=== PATIENT | male | born 1995 | race Caucasian/White ===

== ENCOUNTER 2020-03-05 12:40 | Emergency (ER) | payer MEDICAID, SELFPAY ==
[2020-03-05 12:49] VITALS: BP 138/84; PULSE 105; PULSE 110; RESP 16; TEMP 36.6; O2SAT 99; BMI 24.3
--- NOTE | 2020-03-05 13:08 | ED_ITS ---
HPI - Abdominal Pain General Chief Complaint: ETOH/Substance Use Stated Complaint: drug use Time Seen by Provider: 03/05/20 12:44 Source: patient and EMS Mode of arrival: EMS Limitations: no limitations History of Present Illness HPI narrative: 24 yo male with past medical history of IVDA here with complaints of generalized abdominal cramping, vomiting, diarrhea intermittent for a long time. He tells me he is using IV heroin daily many bags and last use was just BLINTZE ROLLER. No additional substance use. He tells me he has had less heroin the last few days and he thinks this may be contributing to his symptoms. Has been on methadone before but not recently, also has tried suboxone before. Interested in starting both but not interested in detox. No SI/HI. Agitated and intermittently cooperative with EMS, staff. MD elicited complaint: abdominal pain Onset (ago): day(s) Pain Consistency: intermittent Location: diffuse Severity: mild Quality: cramping Radiation: none Migration to: no migration Exacerbating factors: nothing Relieving factors: nothing Associated symptoms: nausea, vomiting and diarrhea Related Data Allergies Allergy/AdvReac Type Severity Reaction Status Date / Time No Known Allergies Allergy Unverified 10/29/19 19:00 [No Known Allergies*] Review of Systems Review of Systems Yes all other systems are reviewed and are negative Constitutional: Reports no additional constitutional complaints, Denies body ache(s), Denies chills, Denies fever(s), Denies headache(s) and Denies weakness Eyes: Reports no additional eye complaints and Denies change in vision Reports system reviewed and no additional complaints, except as documented, Denies dizziness, Denies headache(s), Denies nasal congestion, Denies nasal discharge and Denies neck pain Cardiovascular: Reports no additional cardiovascular complaints, Denies chest pain, Denies leg edema and Denies dyspnea Respiratory: Reports no additional respiratory complaints, Denies cough and Denies dyspnea Gastrointestinal: Reports no additional gastrointestinal complaints, Reports abdominal pain, Reports diarrhea, Reports nausea and Reports vomiting Genitourinary: Denies urinary incontinence Musculoskeletal: Reports no additional musculoskeletal complaints, Denies back pain, Denies arthralgias, Denies joint swelling, Denies neck pain, Denies numbness and Denies tingling Skin/Breast: Reports system reviewed and no additional complaints, except as docu and Denies rash Reports system reviewed and no additional complaints, except as documented, Denies Abnormal speech present, Denies dizziness, Denies headache(s), Denies numbness, Denies tingling and Denies weakness Psychiatric: Denies suicidal ideation Physical Exam Vital Signs: Vital Signs: Last Vital Signs Temp 97.9 F 03/05/20 12:49 Pulse 105 H 03/05/20 12:49 Resp 16 03/05/20 12:49 BP 138/84 03/05/20 12:49 Pulse Ox 99 03/05/20 12:49 Body Mass Index 24.3 Const: General: cooperative, healthy appearing, comfortable and no acute distress Orientation/consciousness: patient oriented x3 Limitations: no limitations HENMT: Head: Yes normal to inspection Ears: hearing grossly normal bilaterally General nose exam: Normal external nose present Face and sinus: Yes normal facial exam Mouth: Normal oral and palatal mucosa present Throat: Yes posterior oropharynx normal Eyes: General: appearance normal, both eyes and all related structures Pupils: Equal, round and reactive pupils present Neck: Neck: Yes normal visual inspection Chest: Chest palpation & inspection: normal inspection of the chest Resp: Effort & Inspection: normal respiratory effort Auscultation: clear to auscultation bilaterally Cardio: Rate: regular rate Rhythm: regular rhythm Peripheral pulses: Peripheral pulses 2+ throughout GI: Other: Mild diffuse tenderness Inspection: Yes normal to inspection Palpation (GI): Soft to palpation Auscultation: normal bowel sounds Back/Spine/Pelvis: Thoracic/Lumbar Spine: thoracic and lumbar spine normal to inspection Skin: General skin exam: no rashes or lesions noted Neuro: Other: +agitated General: patient oriented x3, no focal motor deficits and normal sensation to monofilament Cranial nerves: Yes Equal, round and reactive pupils present Cognition (Neuro): normal cognition Speech: No Abnormal speech present Gait exam (Neuro): Normal gait present Motor exam (neuro): 5/5 motor strength present throughout Sensory Exam: Normal double simultaneous stimulation for sensation Extrem: General: Yes normal to inspection Course Course Course Narrative: 24 yo male here with generalized abdominal cramping, vomiting, diarrhea which is acute on chronic. Tells me he has been using less heroin and thinks these symptoms are related to withdrawal symptoms. On arrival patient is A&Ox4, ambulatory, tolerating water. He has mild diffuse tenderness with no focal tenderness, rebound or guarding. He is very agitated and intermittently agreeable with staff. I saw the patient and offerred to check labs, UA, ORDOÑEZ. Offered medications for withdrawal symptoms which patient accepted. He is interested in both suboxone and methadone however used heroin just BLINTZE ROLLER and it is to soon for him to start these medications. Offered detox but declined. 1320-Pt became increasingly agitated and verbally aggressive with staff. Swearing and yelling obscenities towards staff. Explained to patient that we are happy to see him for his complaint but his behavior towards staff will not be tolerated. He is up and ambulatory, alert and oriented. Unfortunately he continued to escalate and was escorted out by security. Discharge Plan Discharge Clinical Impression: Abdominal pain, Substance use Patient Disposition: Elopement Interventions: ED Discharge Assessment Last Done: 03/05/20 13:32 Discharge Date/Time: 03/05/20 13:33 [facility] Past Medical History Attestation statement: The following information was validated with the patient. Source: old records reviewed and nursing notes reviewed Medical History ADHD Anxiety Asthma GERD (gastroesophageal reflux disease) Insomnia Substance abuse Social History Social History Advance Directives: No Advance Directives Information Provided: No
--- NOTE | 2020-03-05 13:21 | PC.NURSE ---
pt verbally threatening and screaming he is non directable and escalating despite different approaches by various staff. He then stood in an aggressive stance against security, fist clenched while screaming/threatening security and nursing staff. he was then escorted to the ambulance and [employer] was contacted.
--- NOTE | 2020-03-05 13:29 | PC.NURSE ---
Patient seen by Rosie QUALITY ASSURANCE COORDINATOR for evaluation. Plan for labs and medication as ordered. Patient refusing care and verbally escalating at this time. See prior not for additional information.
== END 2020-03-05 13:33 | disposition left against medical advice (07) ==
LOC: HO.ED 13:25
PROVIDERS: Emergency Provider Internal Medicine
DX: R10.9 Unspecified abdominal pain (principal); F11.10 Opioid abuse, uncomplicated; Z71.51 Drug abuse counseling and surveillance of drug abuser
CPT/HCPCS: 99283

== ENCOUNTER 2020-03-13 02:44 | Emergency (ER) | payer MEDICAID, SELFPAY ==
[2020-03-13 02:52] VITALS: BP 133/66; PULSE 130; RESP 18; TEMP 36; O2SAT 94; BMI 24.2
--- NOTE | 2020-03-13 03:33 | US_ITS ---
EXAMINATION: US VENOUS WITH DOPPLER UPPER EXTREMITY, LEFT CLINICAL INFORMATION: Erythema, swelling COMPARISON: None TECHNIQUE: Ultrasound of the upper extremity is performed using compression sonography and color and pulse Doppler flow with assessment of augmentation of flow. There is also imaging and Doppler assessment of the jugular and subclavian veins. Spectral analysis with color-flow imaging is performed. FINDINGS: Per technologist report, performance of the exam was limited evaluation due to patient movement. Respiratory variation, normal compression, and augmented flow are noted throughout the upper extremity including the axillary, brachial, cubital, and radial and ulnar veins. There is normal flow in the internal jugular and subclavian veins. There is no visible deep or superficial thrombophlebitis. If the patient's symptoms progress, a followup ultrasound in 5 -7 days might be of value to exclude proximal propagation from a nonvisualized distal arm vein. Mildly prominent lymph nodes noted in the axilla. US/US venous duplex UE LT IMPRESSION: 1. No DVT demonstrated in the left upper extremity. 2. Mildly prominent axillary lymph nodes which are nonspecific and may be reactive.
[2020-03-13 03:55] VITALS: RESP 18
--- NOTE | 2020-03-13 04:18 | PC.NURSE ---
per patient when i went to [facility], they gave me an us in 2 minutes and dilaudid. I don't know what that is, I just want some pain relief. Pt educated to process of registration scheduling specialist US team. patient educated to purpose of labs and US. Per patient Is this a low standard hospital? pt educated that [facility] that corresponds with the literature of current best treatment. you're being fucking facetious . No further questions at this time.
[2020-03-13 04:20] LABS: Basophils Absolute Auto 0.1 X10*3/uL (0.0-0.2); Basophils Percent Auto 0.2 % (0-2); Hematocrit 36.4 % (42-52); Hemoglobin 12.1 g/dl (14.0-18.0); Imm Gran Abs Auto 0.13 X10*3/uL (0.00-0.03); Imm Gran Pct Auto 0.5 % (0.0-0.4); Lymphocytes Absolute Auto 2.7 X10*3/uL (1.2-4.9); Lymphocytes Percent Auto 9.6 % (20-40); MANUAL DIFF FLAG SCAN; Mean Corpuscular HGB Conc 33.2 g/dl (31.0-36.0); Mean Corpuscular Hemoglobin 27.6 pg (27.0-33.0); Mean Corpuscular Volume 83.1 fL (80-98); Monocytes Absolute Auto 1.9 X10*3/uL (0.1-1.2); Monocytes Percent Auto 6.6 % (2-11); Neutrophils Absolute Auto 23.4 X10*3/uL (2.0-8.3); Neutrophils Percent Auto 83.1 % (45-73); Platelet Count 422 X10*3/uL (160-400); Red Blood Count 4.38 X10*6/uL (4.60-5.80); Red Cell Distribution Width 12.8 % (11.0-16.0); SCAN SMEAR FLAG 1; White Blood Count 28.2 X10*3/uL (4.8-10.8)
--- NOTE | 2020-03-13 04:39 | PC.NURSE ---
Pt to US at this time.
[2020-03-13 04:48] LABS: SLIDE REVIEW VERIFIED
[2020-03-13 04:49] LABS: Lactic Acid 0.5 mmol/L (0.5-2.0)
[2020-03-13 04:49] LABS: Ethanol < 10 mg/dL
[2020-03-13 04:53] LABS: Alanine Aminotransferase 22 U/L (0-40); Albumin Level 4.2 g/dL (3.5-5.0); Alkaline Phosphatase 84 U/L (39-117); Anion Gap 17 (12-20); Aspartate Amino Transferase 35 U/L (5-37); Bilirubin Total 0.8 mg/dL (0.0-1.0); Blood Urea Nitrogen 16 mg/dL (9-16); Carbon Dioxide 23 mmol/L (22-29); Chloride 97 mmol/L (96-108); Creatinine Clr Calc Pharmacy 78.3; Estimated Glomerular Filt Rate > 60; Glucose Random 98 mg/dL (60-115); Potassium 4.1 mmol/L (3.3-5.1); Sodium 133 mmol/L (135-145); Total Protein 7.3 g/dL (6.5-8.0)
--- NOTE | 2020-03-13 05:06 | PC.NURSE ---
THIS PHONE SCREENER REQUESTED A URINE SAMPLE FROM THE PATIENT. WHY THE FUCK DO I NEED TO DO THAT, YOU PROFILING ME? PT EDUCATED THAT DUE TO ELEVATED WHITE BLOOD CELL COUNT, ALL MODES OF INFECTION NEED TO BE RULED OUT. FUCK YOU, YOU FAKE BITCH. PT BECOMING INCREASINGLY IRRITATE AND VERBALLY ABUSIVE TO STAFF. WAXING MACHINE OPERATOR AWARE. MD AWARE. PATIENT I FUCKING HATE YOU'RE FAKE ATTITUDE. I WANT ANOTHER NURSE. PT EDUCATED DUE TO ACUITY AND STAFFING, THE WAXING MACHINE OPERATOR WILL BE A WHILE. BEHAVIOR REMAINS AGGRESSIVE AND ERRATIC. PT OBSERVER NOTED PATIENT BRINGING GENERAL MAINTENANCE ENGINEER AND CIGARET INTO BATHROOM. PATIENT AMBUALTED TO BATHROOM WITH STEADY GAIT. PT REQUESTED THAT THIS RN ENTER BATHROOM TO GIVE URINE CUP. PATIENT EDUCATED THAT HE WOULD NEED TO LEAVE BATHROOM. SECURITY TO BEDSIDE REGARDING VISUALIZATION OF CIGARET INTO BATHROOM. PT DENIES. PT SELF INDUCING VOMITING
--- NOTE | 2020-03-13 05:18 | PC.NURSE ---
pt requesting bandaid after biting glass out of [his] fingers. pt instructed that bandaids will be provided to him once he leaves the bathroom.
--- NOTE | 2020-03-13 05:21 | PC.NURSE ---
pt stated i dont' want to be here any longer. you guys are wasting my time Md to bedside. Provided educated patient the risks of leaving without treatment for infective process, including admission and what could happen if he refuses treatment. Md offered to answer any questions. Pt refused. Pt asked to wait by bedside for ama paperwork. patient refused. Patient refused repeat vs. Patient ambulated with steady gait towards exit.
[2020-03-13 05:28] LABS: Glucose Urine UA NEG (NEG); Leukocyte Esterase Urine NEG (NEG); Nitrite Urine NEG (NEG); Specific Gravity - Urine <= 1.005 (1.005-1.025); Urine Blood 1+ (NEG); Urine Ketones NEG (NEG); Urine Protein NEG (NEG-TRACE)
[2020-03-13 05:30] LABS: Appearance Urine CLEAR; Color Urine STRAW
[2020-03-13 05:37] LABS: Amphetamine Screen Urine Not Detected (Not Detect); Barbiturates, Urine Not Detected (Not Detect); Cannabinoid Screen Urine Not Detected (Not Detect); Cocaine Screen Urine POSITIVE (Not Detect); Phencyclidine Screen Urine Not Detected (Not Detect)
[2020-03-13 05:40] LABS: Benzodiazepines Screen Urine Not Detected (Not Detect); Opiate Screen Urine POSITIVE (Not Detect)
[2020-03-13 06:13] LABS: RBC Urine 0-2 /HPF (0); Squamous Epithelial Cell Urine TRACE /LPF; WBC Urine 0-2 /HPF (0-4)
--- NOTE | 2020-03-13 08:23 | ED_ITS ---
HPI - General Adult General Chief complaint: General Medical Stated complaint: swollen left arm Time Seen by Provider: 03/13/20 03:33 Source: patient Mode of arrival: EMS History of Present Illness HPI narrative: This is a 24-year-old male is brought in by EMS when they were called by police department and stated that patient was acting erratically (they recalled for a noise complaint) and there were concerns for infection of the left upper extremity. Patient states that his arm has been like that for a few days and has been associated with chills but denies numbness and tingling distally to the area of inflammation. Related Data Allergies Allergy/AdvReac Type Severity Reaction Status Date / Time No Known Allergies Allergy Unverified 10/29/19 19:00 [No Known Allergies*] Review of Systems Review of Systems: Pertinent positives and negatives as stated in HPI 10 point review systems is otherwise negative. [facility] Past Medical History Source: nursing notes reviewed Medical History ADHD Anxiety Asthma GERD (gastroesophageal reflux disease) Insomnia Substance abuse Social History Social History Smoking Status: Current every day smoker Use of substances other than those prescribed or required for medical reasons: Yes Substance Use Type: Crack/Cocaine, Heroin and IV Drugs Substance Use Frequency: Daily Last Used Substance: Just Prior to Admission Advance Directives: No Physical Exam Vital Signs: Vital Signs: Last Vital Signs Temp 96.8 F 03/13/20 02:52 Pulse 130 H 03/13/20 02:52 Resp 18 03/13/20 03:55 BP 133/66 03/13/20 02:52 Pulse Ox 94 03/13/20 02:52 Body Mass Index 24.2 VITAL SIGNS: Reviewed. GENERAL: Well developed, well nourished, in no acute distress. OROPHARYNX: no oral lesions noted, posterior pharynx clear NECK: Supple, no adenopathy LUNGS: Normal breath sounds. SpO2<99> CARDIOVASCULAR: Regular rate and rhythm without noted murmurs ABDOMEN: Soft, non-tender, non-distended with bowel sounds. LEFT UPPER EXTREMITY: Significant erythema noted to medial aspect of left upper extremity without fluctuance and significant induration,+ warmth, neurovascular intact distally EXTREMITIES: Extensive needle tracks on bilateral upper extremities SKIN: Inspection of the skin reveals no rashes NEUROLOGIC: Alert and oriented x 4. Course Course Course Narrative: This is a 24-year-old male with history and clinical presentation consistent left upper extremity cellulitis likely secondary to infected injection site and will rule DVT. On review of all investigations patient has a significant leukocytosis and venous duplex was negative DVT. Discussed with patient the results and during this time of workup he was noted to be verbally aggressive with nursing staff and caps and that he was going to sign out AMA and go to [facility]. On discussion of the results with the patient he stated that he wanted to be evaluated at [facility]. It was explained to him that he would need to be admitted for IV antibiotics given the degree infection in his left arm. He stated he was not going to stay and walked out of the emergency department. Medical Decision Making Lab Data Result diagrams: 03/13/20 04:12 03/13/20 04:12 Labs: Lab Results 03/13/20 03/13/20 03/13/20 Range/Units 04:11 04:12 04:12 WBC 28.2 H (4.8-10.8) X10*3/uL RBC 4.38 L (4.60-5.80) X10*6/uL Hgb 12.1 L (14.0-18.0) g/dl Hct 36.4 L (42-52) % MCV 83.1 (80-98) fL MCH 27.6 (27.0-33.0) pg MCHC 33.2 (31.0-36.0) g/dl RDW 12.8 (11.0-16.0) % Plt Count 422 H (160-400) X10*3/uL MPV 9.0 L (9.4-12.4) fL Immature Gran % (Auto) 0.5 H (0.0-0.4) % Neut % (Auto) 83.1 H (45-73) % Lymph % (Auto) 9.6 L (20-40) % [place] % (Auto) 6.6 (2-11) % Eos % (Auto) 0.0 (0-4) % Baso % (Auto) 0.2 (0-2) % Lymph # (Auto) 2.7 (1.2-4.9) X10*3/uL [place] # (Auto) 1.9 H (0.1-1.2) X10*3/uL Eos # (Auto) 0.0 (0.0-0.4) X10*3/uL Baso # (Auto) 0.1 (0.0-0.2) X10*3/uL Abs Immat Gran (auto) 0.13 H (0.00-0.03) X10*3/uL Absolute Neuts (auto) 23.4 H (2.0-8.3) X10*3/uL Absolute Nucleated RBC 0.000 (0.0-0.012) X10*3/uL Nucleated RBC % (auto) 0.0 (0.0-0.2) /100WBC Smear Tech's Comments VERIFIED Sodium 133 L (135-145) mmol/L Potassium 4.1 (3.3-5.1) mmol/L Chloride 97 (96-108) mmol/L Carbon Dioxide 23 (22-29) mmol/L Anion Gap 17 (12-20) BUN 16 (9-16) mg/dL Creatinine 1.29 (0.5-1.4) mg/dL Estim Creat Clear Calc 78.3 Estimated GFR > 60 Random Glucose 98 (60-115) mg/dL Lactic Acid 0.5 (0.5-2.0) mmol/L Calcium 9.0 (8.4-10.2) mg/dL Total Bilirubin 0.8 (0.0-1.0) mg/dL AST 35 (5-37) U/L ALT 22 (0-40) U/L Alkaline Phosphatase 84 (39-117) U/L Total Protein 7.3 (6.5-8.0) g/dL Albumin 4.2 (3.5-5.0) g/dL Urine Color Urine Appearance Urine pH (5.0-8.0) Ur Specific [place] (1.005-1.025) Urine Protein (NEG-TRACE) MG/DL Urine Glucose (UA) (NEG) MG/DL Urine Ketones (NEG) MG/DL Urine Blood (NEG) Urine Nitrite (NEG) Ur Leukocyte Esterase (NEG) Urine RBC (0) /HPF Urine WBC (0-4) /HPF Ur Squamous Epith Cells /LPF Urine Bacteria /LPF Urine Opiates Screen (Not Detect) Ur Barbiturates Screen (Not Detect) Ur Phencyclidine Scrn (Not Detect) Ur Amphetamines Screen (Not Detect) U Benzodiazepines Scrn (Not Detect) Urine Cocaine Screen (Not Detect) U Marijuana (THC) Screen (Not Detect) Ethyl Alcohol mg/dL 03/13/20 03/13/20 03/13/20 Range/Units 04:12 05:19 05:19 WBC (4.8-10.8) X10*3/uL RBC (4.60-5.80) X10*6/uL Hgb (14.0-18.0) g/dl Hct (42-52) % MCV (80-98) fL MCH (27.0-33.0) pg MCHC (31.0-36.0) g/dl RDW (11.0-16.0) % Plt Count (160-400) X10*3/uL MPV (9.4-12.4) fL Immature Gran % (Auto) (0.0-0.4) % Neut % (Auto) (45-73) % Lymph % (Auto) (20-40) % [place] % (Auto) (2-11) % Eos % (Auto) (0-4) % Baso % (Auto) (0-2) % Lymph # (Auto) (1.2-4.9) X10*3/uL [place] # (Auto) (0.1-1.2) X10*3/uL Eos # (Auto) (0.0-0.4) X10*3/uL Baso # (Auto) (0.0-0.2) X10*3/uL Abs Immat Gran (auto) (0.00-0.03) X10*3/uL Absolute Neuts (auto) (2.0-8.3) X10*3/uL Absolute Nucleated RBC (0.0-0.012) X10*3/uL Nucleated RBC % (auto) (0.0-0.2) /100WBC Smear Tech's Comments Sodium (135-145) mmol/L Potassium (3.3-5.1) mmol/L Chloride (96-108) mmol/L Carbon Dioxide (22-29) mmol/L Anion Gap (12-20) BUN (9-16) mg/dL Creatinine (0.5-1.4) mg/dL Estim Creat Clear Calc Estimated GFR Random Glucose (60-115) mg/dL Lactic Acid (0.5-2.0) mmol/L Calcium (8.4-10.2) mg/dL Total Bilirubin (0.0-1.0) mg/dL AST (5-37) U/L ALT (0-40) U/L Alkaline Phosphatase (39-117) U/L Total Protein (6.5-8.0) g/dL Albumin (3.5-5.0) g/dL Urine Color STRAW Urine Appearance CLEAR Urine pH 6.0 (5.0-8.0) Ur Specific [place] <= 1.005 (1.005-1.025) Urine Protein NEG (NEG-TRACE) MG/DL Urine Glucose (UA) NEG (NEG) MG/DL Urine Ketones NEG (NEG) MG/DL Urine Blood 1+ H (NEG) Urine Nitrite NEG (NEG) Ur Leukocyte Esterase NEG (NEG) Urine RBC 0-2 (0) /HPF Urine WBC 0-2 (0-4) /HPF Ur Squamous Epith Cells TRACE /LPF Urine Bacteria NONE /LPF Urine Opiates Screen POSITIVE H (Not Detect) Ur Barbiturates Screen Not Detected (Not Detect) Ur Phencyclidine Scrn Not Detected (Not Detect) Ur Amphetamines Screen Not Detected (Not Detect) U Benzodiazepines Scrn Not Detected (Not Detect) Urine Cocaine Screen POSITIVE H (Not Detect) U Marijuana (THC) Screen Not Detected (Not Detect) Ethyl Alcohol < 10 mg/dL Discharge Plan Discharge Clinical Impression: Cellulitis of left upper arm Patient Disposition: Elopement Interventions: ED Discharge Assessment Last Done: 03/13/20 05:30 Discharge Date/Time: 03/13/20 05:32
== END 2020-03-13 05:32 | disposition left against medical advice (07) ==
PROVIDERS: Emergency Provider Student in an Organized Health Care Education/Training Program; PCP Internal Medicine
DX: L03.114 Cellulitis of left upper limb (principal); R60.0 Localized edema; F17.200 Nicotine dependence, unspecified, uncomplicated; F11.90 Opioid use, unspecified, uncomplicated; F14.90 Cocaine use, unspecified, uncomplicated; Z71.6 Tobacco abuse counseling
CPT/HCPCS: 36415; 80053; 80307; 80320; 81001; 83605; 85025; 87040; 93971; 99284

== ENCOUNTER 2020-03-14 22:46 | Inpatient (IN) | payer MEDICAID, SELFPAY ==
[2020-03-14 23:04] VITALS: BP 116/80; BP 134/75; PULSE 92; PULSE 94; RESP 15; TEMP 36.9; O2SAT 98; O2SAT 99; BMI 21.2
--- NOTE | 2020-03-14 23:13 | ECG_ITS ---
Test Reason : INFECTION Blood Pressure : / mmHG Vent. Rate : 083 BPM Atrial Rate : 083 BPM P-R Int : 136 ms QRS Dur : 092 ms QT Int : 410 ms P-R-T Axes : 046 066 051 degrees QTc Int : 481 ms Normal sinus rhythm Moderate voltage criteria for LVH, may be normal variant Prolonged QT Abnormal ECG No previous ECGs available Referred By: Clarice Vázquez Electronically Signed By:ASHLEY BHAT MD
--- NOTE | 2020-03-14 23:15 | ED_ITS ---
HPI - Extremity Problem General Chief complaint: Extremity Problem Stated complaint: arm pain Time Seen by Provider: 03/14/20 23:13 Source: patient Mode of arrival: EMS History of Present Illness HPI Narrative: This is a 24-year-old male history of IVDA who was initially evaluated last night and noted to have cellulitis and on that initial examination venous duplex was negative for DVT. Patient eloped and now is being brought in again by EMS for same symptoms left upper extremity redness, swelling, pain and stating that ?it is now leaking?. Patient states that his arm has been like that for a few days and has been associated with chills but denies numbness and tingling distally to the area of inflammation. Related Data Allergies Allergy/AdvReac Type Severity Reaction Status Date / Time No Known Allergies Allergy Unverified 10/29/19 19:00 [No Known Allergies*] Review of Systems Review of Systems: Pertinent positives and negatives as stated in HPI 10 point review systems is otherwise negative. PMFSH Past Medical History Source: nursing notes reviewed Medical History ADHD Anxiety Asthma GERD (gastroesophageal reflux disease) Insomnia Substance abuse Social History Social History Smoking Status: Never smoker Use of substances other than those prescribed or required for medical reasons: Yes Substance Use Type: Crack/Cocaine and Heroin Substance Use Frequency: Chronic Longstanding Last Used Substance: Hours (ago) Any prior treatment program specific to substance use: No Advance Directives: No Physical Exam Vital Signs: Vital Signs: Last Vital Signs Temp 98.4 F 03/15/20 00:00 Pulse 94 03/15/20 00:00 Resp 15 03/15/20 00:00 BP 134/75 03/15/20 00:00 Pulse Ox 98 03/15/20 00:00 Body Mass Index 21.2 VITAL SIGNS: Reviewed. GENERAL: Well developed, well nourished, in no acute distress. OROPHARYNX: no oral lesions noted, posterior pharynx clear NECK: Supple, no adenopathy LUNGS: Normal breath sounds. SpO2<98> CARDIOVASCULAR: Regular rate and rhythm without noted murmurs ABDOMEN: Soft, non-tender, non-distended with bowel sounds. LEFT UPPER EXTREMITY: Significant erythema, induration noted to left upper extremity with fluctuance and 2 sites of purulent drainage,+ warmth, neurovascular intact distally EXTREMITIES: Extensive needle tracks on bilateral upper extremities SKIN: Inspection of the skin reveals no rashes NEUROLOGIC: Alert and oriented x 4. Course Course Course Narrative: This is a 24-year-old male with history and clinical pres entation consistent with left upper extremity cellulitis and meeting criteria for sepsis. Lactic acid, blood cultures, antibiotics, and I and D performed. All investigations reviewed and no significant findings noted in comparison to lab work drawn within the past 12 hours. Additional note, patient did have a venous duplex which was negative for DVT. Discussed case with inpatient hospitalist team who is agreeable for admission. Procedures Abscess I/D Site: upper extremity Side (if applicable): left Sedation/analgesia: none Local Anesthetic: lidocaine 2% and with epi Amount of anesthesia used (mL): 8 Technique: incised with blade Amount of fluid expressed (mL): 200 Sent for culture/gram staining?: No Irrigation: Yes Packing used?: plain Complications: pain MDM - Extremity (Nontraumatic) Lab Data Result diagrams: 03/14/20 23:32 03/14/20 23:32 Labs: Lab Results 03/14/20 03/14/20 03/14/20 Range/Units 23:32 23:32 23:32 WBC 22.6 H (4.8-10.8) X10*3/uL RBC 4.53 L (4.60-5.80) X10*6/uL Hgb 12.4 L (14.0-18.0) g/dl Hct 37.9 L (42-52) % MCV 83.7 (80-98) fL MCH 27.4 (27.0-33.0) pg MCHC 32.7 (31.0-36.0) g/dl RDW 12.8 (11.0-16.0) % Plt Count 466 H (160-400) X10*3/uL MPV 10.0 (9.4-12.4) fL Immature Gran % (Auto) 0.4 (0.0-0.4) % Neut % (Auto) 81.3 H (45-73) % Lymph % (Auto) 11.9 L (20-40) % [place] % (Auto) 6.1 (2-11) % Eos % (Auto) 0.1 (0-4) % Baso % (Auto) 0.2 (0-2) % Lymph # (Auto) 2.7 (1.2-4.9) X10*3/uL [place] # (Auto) 1.4 H (0.1-1.2) X10*3/uL Eos # (Auto) 0.0 (0.0-0.4) X10*3/uL Baso # (Auto) 0.1 (0.0-0.2) X10*3/uL Abs Immat Gran (auto) 0.10 H (0.00-0.03) X10*3/uL Absolute Neuts (auto) 18.4 H (2.0-8.3) X10*3/uL Absolute Nucleated RBC 0.000 (0.0-0.012) X10*3/uL Nucleated RBC % (auto) 0.0 (0.0-0.2) /100WBC Sodium 132 L (135-145) mmol/L Potassium 4.8 (3.3-5.1) mmol/L Chloride 92 L (96-108) mmol/L Carbon Dioxide 23 (22-29) mmol/L Anion Gap 22 H (12-20) BUN 12 (9-16) mg/dL Creatinine 1.01 (0.5-1.4) mg/dL Estim Creat Clear Calc 117.8 Estimated GFR > 60 Random Glucose 101 (60-115) mg/dL Lactic Acid (0.5-2.0) mmol/L Calcium 9.5 (8.4-10.2) mg/dL Total Bilirubin 0.5 (0.0-1.0) mg/dL AST 46 H (5-37) U/L ALT 28 (0-40) U/L Alkaline Phosphatase 110 D (39-117) U/L Total Protein 8.3 H (6.5-8.0) g/dL Albumin 4.5 (3.5-5.0) g/dL Urine Color Urine Appearance Urine pH (5.0-8.0) Ur Specific [place] (1.005-1.025) Urine Protein (NEG-TRACE) MG/DL Urine Glucose (UA) (NEG) MG/DL Urine Ketones (NEG) MG/DL Urine Blood (NEG) Urine Nitrite (NEG) Ur Leukocyte Esterase (NEG) Urine RBC (0) /HPF Urine WBC (0-4) /HPF Ur Squamous Epith Cells /LPF Urine Bacteria /LPF Urine Opiates Screen (Not Detect) Ur Barbiturates Screen (Not Detect) Ur Phencyclidine Scrn (Not Detect) Ur Amphetamines Screen (Not Detect) U Benzodiazepines Scrn (Not Detect) Urine Cocaine Screen (Not Detect) U Marijuana (THC) Screen (Not Detect) Ethyl Alcohol mg/dL COVID-19 ([place]) Negative (Negative) COVID-19 Clin Com See Note 03/14/20 03/14/20 03/15/20 Range/Units 23:32 23:33 00:19 WBC (4.8-10.8) X10*3/uL RBC (4.60-5.80) X10*6/uL Hgb (14.0-18.0) g/dl Hct (42-52) % MCV (80-98) fL MCH (27.0-33.0) pg MCHC (31.0-36.0) g/dl RDW (11.0-16.0) % Plt Count (160-400) X10*3/uL MPV (9.4-12.4) fL Immature Gran % (Auto) (0.0-0.4) % Neut % (Auto) (45-73) % Lymph % (Auto) (20-40) % [place] % (Auto) (2-11) % Eos % (Auto) (0-4) % Baso % (Auto) (0-2) % Lymph # (Auto) (1.2-4.9) X10*3/uL [place] # (Auto) (0.1-1.2) X10*3/uL Eos # (Auto) (0.0-0.4) X10*3/uL Baso # (Auto) (0.0-0.2) X10*3/uL Abs Immat Gran (auto) (0.00-0.03) X10*3/uL Absolute Neuts (auto) (2.0-8.3) X10*3/uL Absolute Nucleated RBC (0.0-0.012) X10*3/uL Nucleated RBC % (auto) (0.0-0.2) /100WBC Sodium (135-145) mmol/L Potassium (3.3-5.1) mmol/L Chloride (96-108) mmol/L Carbon Dioxide (22-29) mmol/L Anion Gap (12-20) BUN (9-16) mg/dL Creatinine (0.5-1.4) mg/dL Estim Creat Clear Calc Estimated GFR Random Glucose (60-115) mg/dL Lactic Acid 1.0 (0.5-2.0) mmol/L Calcium (8.4-10.2) mg/dL Total Bilirubin (0.0-1.0) mg/dL AST (5-37) U/L ALT (0-40) U/L Alkaline Phosphatase (39-117) U/L Total Protein (6.5-8.0) g/dL Albumin (3.5-5.0) g/dL Urine Color YELLOW Urine Appearance CLEAR Urine pH 6.5 (5.0-8.0) Ur Specific [place] <= 1.005 (1.005-1.025) Urine Protein NEG (NEG-TRACE) MG/DL Urine Glucose (UA) NEG (NEG) MG/DL Urine Ketones NEG (NEG) MG/DL Urine Blood TRACE (NEG) Urine Nitrite NEG (NEG) Ur Leukocyte Esterase NEG (NEG) Urine RBC 1-4 (0) /HPF Urine WBC 0-2 (0-4) /HPF Ur Squamous Epith Cells TRACE /LPF Urine Bacteria NONE /LPF Urine Opiates Screen (Not Detect) Ur Barbiturates Screen (Not Detect) Ur Phencyclidine Scrn (Not Detect) Ur Amphetamines Screen (Not Detect) U Benzodiazepines Scrn (Not Detect) Urine Cocaine Screen (Not Detect) U Marijuana (THC) Screen (Not Detect) Ethyl Alcohol < 10 mg/dL COVID-19 ([place]) (Negative) COVID-19 Clin Com 03/15/20 Range/Units 00:19 WBC (4.8-10.8) X10*3/uL RBC (4.60-5.80) X10*6/uL Hgb (14.0-18.0) g/dl Hct (42-52) % MCV (80-98) fL MCH (27.0-33.0) pg MCHC (31.0-36.0) g/dl RDW (11.0-16.0) % Plt Count (160-400) X10*3/uL MPV (9.4-12.4) fL Immature Gran % (Auto) (0.0-0.4) % Neut % (Auto) (45-73) % Lymph % (Auto) (20-40) % [place] % (Auto) (2-11) % Eos % (Auto) (0-4) % Baso % (Auto) (0-2) % Lymph # (Auto) (1.2-4.9) X10*3/uL [place] # (Auto) (0.1-1.2) X10*3/uL Eos # (Auto) (0.0-0.4) X10*3/uL Baso # (Auto) (0.0-0.2) X10*3/uL Abs Immat Gran (auto) (0.00-0.03) X10*3/uL Absolute Neuts (auto) (2.0-8.3) X10*3/uL Absolute Nucleated RBC (0.0-0.012) X10*3/uL Nucleated RBC % (auto) (0.0-0.2) /100WBC Sodium (135-145) mmol/L Potassium (3.3-5.1) mmol/L Chloride (96-108) mmol/L Carbon Dioxide (22-29) mmol/L Anion Gap (12-20) BUN (9-16) mg/dL Creatinine (0.5-1.4) mg/dL Estim Creat Clear Calc Estimated GFR Random Glucose (60-115) mg/dL Lactic Acid (0.5-2.0) mmol/L Calcium (8.4-10.2) mg/dL Total Bilirubin (0.0-1.0) mg/dL AST (5-37) U/L ALT (0-40) U/L Alkaline Phosphatase (39-117) U/L Total Protein (6.5-8.0) g/dL Albumin (3.5-5.0) g/dL Urine Color Urine Appearance Urine pH (5.0-8.0) Ur Specific [place] (1.005-1.025) Urine Protein (NEG-TRACE) MG/DL Urine Glucose (UA) (NEG) MG/DL Urine Ketones (NEG) MG/DL Urine Blood (NEG) Urine Nitrite (NEG) Ur Leukocyte Esterase (NEG) Urine RBC (0) /HPF Urine WBC (0-4) /HPF Ur Squamous Epith Cells /LPF Urine Bacteria /LPF Urine Opiates Screen POSITIVE H (Not Detect) Ur Barbiturates Screen Not Detected (Not Detect) Ur Phencyclidine Scrn Not Detected (Not Detect) Ur Amphetamines Screen Not Detected (Not Detect) U Benzodiazepines Scrn Not Detected (Not Detect) Urine Cocaine Screen POSITIVE H (Not Detect) U Marijuana (THC) Screen Not Detected (Not Detect) Ethyl Alcohol mg/dL COVID-19 ([place]) (Negative) COVID-19 Clin Com ECG Data Attestation EKG: I personally reviewed and interpreted this ECG as follows: Prior ECG tracings: not available for review Interpretation: Normal sinus rhythm, HR -83, no evidence of acute ischemia, RI/QRS are within normal limits. Discharge Plan Discharge Clinical Impression: Cellulitis and abscess of upper extremity Sepsis Qualifiers: Sepsis type: sepsis due to unspecified organism Sepsis acute organ dysfunction status: without acute organ dysfunction Qualified Code(s): A41.9 - Sepsis, unspecified organism Patient Disposition: Admitted As Inpatient
[2020-03-14 23:30] VITALS: RESP 15
[2020-03-14] MEDS: HYDROmorphone HCl 0.5 MG/0.5 ML SYRINGE IVPUSH (23:30)
[2020-03-14 23:38] LABS: Basophils Absolute Auto 0.1 X10*3/uL (0.0-0.2); Basophils Percent Auto 0.2 % (0-2); Eosinophils Percent Auto 0.1 % (0-4); Hematocrit 37.9 % (42-52); Hemoglobin 12.4 g/dl (14.0-18.0); Imm Gran Pct Auto 0.4 % (0.0-0.4); Lymphocytes Absolute Auto 2.7 X10*3/uL (1.2-4.9); Lymphocytes Percent Auto 11.9 % (20-40); Mean Corpuscular HGB Conc 32.7 g/dl (31.0-36.0); Mean Corpuscular Hemoglobin 27.4 pg (27.0-33.0); Mean Corpuscular Volume 83.7 fL (80-98); Monocytes Absolute Auto 1.4 X10*3/uL (0.1-1.2); Monocytes Percent Auto 6.1 % (2-11); Neutrophils Absolute Auto 18.4 X10*3/uL (2.0-8.3); Neutrophils Percent Auto 81.3 % (45-73); Platelet Count 466 X10*3/uL (160-400); Red Blood Count 4.53 X10*6/uL (4.60-5.80); Red Cell Distribution Width 12.8 % (11.0-16.0); White Blood Count 22.6 X10*3/uL (4.8-10.8)
[2020-03-14 23:39] LABS: MANUAL DIFF FLAG NO
[2020-03-14] MEDS: Lidocaine HCl 2%/Epi 1:100,000 20 ML VIAL INFILTRATI (23:45)
[2020-03-14 23:50] VITALS: RESP 15
[2020-03-14] MEDS: HYDROmorphone HCl 1 MG/ML SYRINGE IVPUSH (23:50)
[2020-03-14 23:52] LABS: COVID-19 Test Negative (Negative)
[2020-03-14 23:59] LABS: Ethanol < 10 mg/dL
[2020-03-15] VITALS (13 sets, daily range): BP systolic 108–146; BP diastolic 50–77; PULSE 75–96; RESP 14–20; TEMP 36.9–37.3; O2SAT 97–99
--- NOTE | 2020-03-15 | XR_ITS ---
EXAMINATION: CHEST 1 VIEW CLINICAL INFORMATION: Cough. COMPARISON: None. TECHNIQUE: An AP view of the chest is provided. FINDINGS: The cardiac silhouette is not enlarged. The mediastinal and hilar contours are unremarkable. There are neither pleural effusions nor pneumothoraces. There are no consolidations. The osseous structures are unremarkable. XR/XR chest 1V IMPRESSION: No evidence for acute disease.
[2020-03-15 00:02] LABS: Alanine Aminotransferase 28 U/L (0-40); Albumin Level 4.5 g/dL (3.5-5.0); Alkaline Phosphatase 110 U/L (39-117); Anion Gap 22 (12-20); Aspartate Amino Transferase 46 U/L (5-37); Bilirubin Total 0.5 mg/dL (0.0-1.0); Blood Urea Nitrogen 12 mg/dL (9-16); Calcium 9.5 mg/dL (8.4-10.2); Carbon Dioxide 23 mmol/L (22-29); Chloride 92 mmol/L (96-108); Creatinine Clr Calc Pharmacy 117.8; Estimated Glomerular Filt Rate > 60; Glucose Random 101 mg/dL (60-115); Potassium 4.8 mmol/L (3.3-5.1); Sodium 132 mmol/L (135-145); Total Protein 8.3 g/dL (6.5-8.0)
[2020-03-15] MEDS: Piperacillin Sodium/Tazobactam 3.375 GM in 0.9 % Sodium Chloride 50 ML IV ×5 (00:12→23:37)
--- NOTE | 2020-03-15 00:21 | CT_ITS ---
EXAMINATION: CT LEFT HUMERUS AND LEFT FOREARM WITH CONTRAST CLINICAL INFORMATION: Swelling and cellulitis. COMPARISON: None TECHNIQUE: Contiguous helical images of the left humerus and forearm were obtained following the administration of IV contrast. Multiplanar reconstructions were performed. FINDINGS: There is subcutaneous gas noted within the soft tissues about the mid left humerus. There are areas of heterogeneity noted within the soft tissues with adjacent trace free fluid. There are no fractures or dislocations. There is no demonstrable elbow joint effusion. Please note that soft tissue detail is limited as ultrasound provides for greater tissue characterization. CT/CT forearm LT w con IMPRESSION: Limited examination. Please note that ultrasound is an optimal modality for evaluation with greater soft tissue characterization than CT. There is subcutaneous gas noted in the soft tissues about the mid humerus with trace free fluid and areas of soft tissue heterogeneity possibly retail representative of hemorrhage.
--- NOTE | 2020-03-15 00:21 | CT_ITS ---
EXAMINATION: CT LEFT HUMERUS AND LEFT FOREARM WITH CONTRAST CLINICAL INFORMATION: Swelling and cellulitis. COMPARISON: None TECHNIQUE: Contiguous helical images of the left humerus and forearm were obtained following the administration of IV contrast. Multiplanar reconstructions were performed. FINDINGS: There is subcutaneous gas noted within the soft tissues about the mid left humerus. There are areas of heterogeneity noted within the soft tissues with adjacent trace free fluid. There are no fractures or dislocations. There is no demonstrable elbow joint effusion. Please note that soft tissue detail is limited as ultrasound provides for greater tissue characterization. CT/CT humerus LT w con IMPRESSION: Limited examination. Please note that ultrasound is an optimal modality for evaluation with greater soft tissue characterization than CT. There is subcutaneous gas noted in the soft tissues about the mid humerus with trace free fluid and areas of soft tissue heterogeneity possibly data entry representative of hemorrhage.
[2020-03-15 00:25] LABS: Glucose Urine UA NEG (NEG); Leukocyte Esterase Urine NEG (NEG); Nitrite Urine NEG (NEG); PH 6.5 (5.0-8.0); Specific Gravity - Urine <= 1.005 (1.005-1.025); Urine Blood TRACE (NEG); Urine Ketones NEG (NEG); Urine Protein NEG (NEG-TRACE)
[2020-03-15 00:26] LABS: Appearance Urine CLEAR; Color Urine YELLOW
[2020-03-15 00:32] LABS: Squamous Epithelial Cell Urine TRACE /LPF; WBC Urine 0-2 /HPF (0-4)
--- NOTE | 2020-03-15 00:36 | PM.IMHP ---
History of Present Illness Date of Service: 03/15/20 Chief Complaint: Left upper extremity pain/redness/swelling 24-year-old male with a past medical history of substance abuse/IV drug abuse, anxiety, depression, asthma, GERD, history of endocarditis presented to the hospital with a chief complaint of left upper extremity pain redness and swelling over the past week to 10 days. Denies any chest pain palpitations lightheadedness dizziness. Denies any fevers chills. Mentioned that he has been using heroin and cocaine. Denies any numbness tingling. Review of all other systems is negative except mentioned above ER course: Per ER team patient initially presented yesterday with similar complaints and patient was given antibiotics and had a venous duplex done which showed no evidence of DVT. Patient left AMA and presented back again today. Patient noted to have drainage around the left arm cellulitis-I&D was done with 200 cc of fluid removal. CT scan of the left upper extremity pending. ER physician also mentioned that less concern for any shoulder or elbow joint infection. [facility]LY [facility] Medical History ADHD Anxiety Asthma GERD (gastroesophageal reflux disease) Insomnia Substance abuse Social History Smoking Status: Never smoker Use of substances other than those prescribed or required for medical reasons: Yes Substance Use Type: Crack/Cocaine and Heroin Substance Use Frequency: Chronic Longstanding Last Used Substance: Hours (ago) Any prior treatment program specific to substance use: No Advance Directives: No Meds Allergies Allergy/AdvReac Type Severity Reaction Status Date / Time No Known Allergies Allergy Unverified 10/29/19 19:00 [No Known Allergies*] Physical Exam Vital Signs and Narrative: Vital Signs: Last Vital Signs Temp 98.4 F 03/15/20 00:00 Pulse 94 03/15/20 00:00 Resp 15 03/15/20 00:00 BP 134/75 03/15/20 00:00 Pulse Ox 98 03/15/20 00:00 Body Mass Index 21.2 Gen: Appears be in no acute distress HEENT: NCAT, Moist mucosa. Pulmonary: Vesicular breath sounds, fair air entry CVS: Normal S1-S2 Abdomen: BS+, Soft, Nontender Extremities: Warm well perfused; left arm warm, swollen And tender. Dressing in place.noted erythematous lesions on Skin/fingers; Neuro: Alert and awake. Results Labs CBC and Chem 7: 03/14/20 23:32 03/14/20 23:32 Labs: Laboratory Results - last 24 hr 03/14/20 03/14/20 03/14/20 23:32 23:32 23:32 MCV 83.7 MCH 27.4 MCHC 32.7 RDW 12.8 Plt Count 466 H MPV 10.0 Immature Gran % (Auto) 0.4 Neut % (Auto) 81.3 H Lymph % (Auto) 11.9 L [place] % (Auto) 6.1 Eos % (Auto) 0.1 Baso % (Auto) 0.2 Lymph # (Auto) 2.7 [place] # (Auto) 1.4 H Eos # (Auto) 0.0 Baso # (Auto) 0.1 Abs Immat Gran (auto) 0.10 H Absolute Neuts (auto) 18.4 H Absolute Nucleated RBC 0.000 Nucleated RBC % (auto) 0.0 Anion Gap 22 H Estim Creat Clear Calc 117.8 Estimated GFR > 60 Random Glucose 101 Lactic Acid Calcium 9.5 Total Bilirubin 0.5 AST 46 H ALT 28 Alkaline Phosphatase 110 D Total Protein 8.3 H Albumin 4.5 Urine Color Urine Appearance Urine pH Ur Specific [place] Urine Protein Urine Glucose (UA) Urine Ketones Urine Blood Urine Nitrite Ur Leukocyte Esterase Urine RBC Urine WBC Ur Squamous Epith Cells Urine Bacteria Ethyl Alcohol COVID-19 ([facility]) Negative COVID-19 Clin Com See Note 03/14/20 03/14/20 03/15/20 23:32 23:33 00:19 MCV MCH MCHC RDW Plt Count MPV Immature Gran % (Auto) Neut % (Auto) Lymph % (Auto) [place] % (Auto) Eos % (Auto) Baso % (Auto) Lymph # (Auto) [place] # (Auto) Eos # (Auto) Baso # (Auto) Abs Immat Gran (auto) Absolute Neuts (auto) Absolute Nucleated RBC Nucleated RBC % (auto) Anion Gap Estim Creat Clear Calc Estimated GFR Random Glucose Lactic Acid 1.0 Calcium Total Bilirubin AST ALT Alkaline Phosphatase Total Protein Albumin Urine Color YELLOW Urine Appearance CLEAR Urine pH 6.5 Ur Specific [place] <= 1.005 Urine Protein NEG Urine Glucose (UA) NEG Urine Ketones NEG Urine Blood TRACE Urine Nitrite NEG Ur Leukocyte Esterase NEG Urine RBC 1-4 Urine WBC 0-2 Ur Squamous Epith Cells TRACE Urine Bacteria NONE Ethyl Alcohol < 10 COVID-19 ([facility]) COVID-19 Clin Com Assessment and Plan (1) Cellulitis and abscess of upper extremity: Status: Acute 24-year-old male with a past medical history of anxiety, depression, polysubstance abuse, IV drug abuse, history of endocarditis presented to the hospital with a chief complaint of left arm pain redness and swelling. Noted to have cellulitis/abscess of the left arm with drain H of [place]. Status post I&D in the ER with 200 cc of pus removed. Started on IV antibiotics. Left arm cellulitis/abscess: Venous duplex negative for DVT. Status post I&D in the ER. Continue vanc and Zosyn. CT scan of the left upper extremity pending. Range of motion intact at the elbow and shoulder joints. To follow-up CT scan results if any joint involvement. General surgery consulted. Blood cultures have been sent. Echocardiogram. Pain control History of IVDA/opiate dependence: Cows protocol. Patient denies following any opiate maintenance program. Clonidine p.r.n.. Peripheral skin/finger erythematous lesions: Patient reports exposure to cold. Complains of pain. Well demarcated. Tender on palpation. Surgery consulted. Pain control. Asthma: Stable DVT prophylaxis: SCD boots Full code
[2020-03-15 00:37] LABS: Amphetamine Screen Urine Not Detected (Not Detect); Barbiturates, Urine Not Detected (Not Detect); Benzodiazepines Screen Urine Not Detected (Not Detect); Cannabinoid Screen Urine Not Detected (Not Detect); Cocaine Screen Urine POSITIVE (Not Detect); Opiate Screen Urine POSITIVE (Not Detect); Phencyclidine Screen Urine Not Detected (Not Detect)
[2020-03-15] MEDS: 0.9 % Sodium Chloride 2,466 ML 2466 ML IVCONT (01:38)
--- NOTE | 2020-03-15 01:48 | PC.NURSE ---
Patient at CAT SCAN for imaging.
[2020-03-15] MEDS: iohexoL 350 MG/ML 100 ML INFUS..BTL IV (02:09)
--- NOTE | 2020-03-15 02:40 | PC.NURSE ---
Patient was prepped by ED provider for I & D of abcess on inner elbow left arm. Patient was given lidocaine by provider to numb area. Abcess lanced and about 200 cc of greyish white foul smelling purulent drainage was expressed from wound. Patient tolerated the procedure well. Wound was packed with guaze and then wrapped. Patient given pain medication prior to procedure and during procedure. Patient received abx post procedure.
[2020-03-15] MEDS: Ketorolac Tromethamine 30 MG/ML VIAL 15 MG IVPUSH ×2 (04:46→10:59)
--- NOTE | 2020-03-15 04:51 | PC.NURSE ---
Patient used 6 bags of heroine around 5 pm yesterday and also urine was positive of cocaine. Patient was altered upon arrival. Patient began complaining of hot/cold sweats and began getting agitated. He also was vomiting slight amount of bile. I asked patient to explain his symptoms when he withdraws from Heroine and he described the previous symtoms. MD made aware. Patient medicated for pain per emar
--- NOTE | 2020-03-15 05:31 | PC.NURSE ---
Patient's bandage on his arm has been change twice throughout the night. Serosanguineous drainage noted which soak through 4 4x4 guazes and 2 cling wraps. The drainage was foul smelling. notified
--- NOTE | 2020-03-15 06:00 | PC.NURSE ---
patient medicated per emar with antibiotics.
[2020-03-15 06:59] LABS: Hematocrit 33.6 % (42-52); Hemoglobin 11.1 g/dl (14.0-18.0); Mean Corpuscular Hemoglobin 27.8 pg (27.0-33.0); Mean Corpuscular Volume 84.2 fL (80-98); Mean Platelet Volume 9.3 fL (9.4-12.4); Platelet Count 385 X10*3/uL (160-400); Red Blood Count 3.99 X10*6/uL (4.60-5.80); Red Cell Distribution Width 12.9 % (11.0-16.0); White Blood Count 15.2 X10*3/uL (4.8-10.8)
[2020-03-15 07:32] LABS: Blood Urea Nitrogen 11 mg/dL (9-16); Creatinine Clr Calc Pharmacy 158.7; Estimated Glomerular Filt Rate > 60; Glucose Random 103 mg/dL (60-115)
[2020-03-15 07:42] LABS: Anion Gap 12 (12-20); Calcium 7.9 mg/dL (8.4-10.2); Carbon Dioxide 28 mmol/L (22-29); Chloride 102 mmol/L (96-108); Potassium 3.8 mmol/L (3.3-5.1); Sodium 138 mmol/L (135-145)
[2020-03-15] MEDS: 0.9 % Sodium Chloride Flush 3 ML SYRINGE IVFLUSH ×2 (08:00→18:30)
--- NOTE | 2020-03-15 10:30 | PC.NURSE ---
dr. florian at bedside, pt ask md to return after 1/2hr because he wants to sleep.
--- NOTE | 2020-03-15 10:47 | PC.NURSE ---
dr. cobian (surgeon) at bedside, pt aware of plan of care.
--- NOTE | 2020-03-15 10:55 | P.CONGS_ITS ---
History of Present Illness Consult details Consult date: 03/15/20 Requesting physician: Niko Phoenix Narrative: Jose Millan is a 24-year-old male patient with history of IVDA presenting with an abscess of the left upper arm. He was previously evaluated in the emergency department several days ago and found to have an abscess in the left upper arm at the site of injection. He underwent incision and drainage of the abscess. The plan was to have the patient admitted for IV antibiotics but he subsequently left AMA. He subsequently returned to the emergency department early this morning with similar complaints. He reports foul-smelling discharge from the incision and drainage site. He denies a previous history of infections similar to this. Patient is admitted to the hospitalist service for IV antibiotics. Review of Systems Review of Systems: Yes all other systems are reviewed and are negative Constitutional: Constitutional: Reports body ache(s), Reports chills and Reports difficulty sleeping Cardiovascular: Cardiovascular: Denies chest pain, Denies diaphoresis, Denies rapid heart rate, Denies irregular heart rhythm and Denies orthopnea Respiratory: Respiratory: Denies chest congestion, Denies cough and Denies hemoptysis Gastrointestinal: Gastrointestinal: Reports no additional gastrointestinal complaints and Reports heartburn Genitourinary: Genitourinary: Reports no additional male genitourinary complaints Musculoskeletal: Musculoskeletal: Reports as per HPI Integumentary/Breasts: Skin/Breast: Reports as per HPI, Reports furuncle and Reports swelling Psychiatric: Psychiatric: Reports anxiety PMFSH Past Medical History Medical History ADHD Anxiety Asthma GERD (gastroesophageal reflux disease) Insomnia Substance abuse Social History Social History Smoking Status: Never smoker Use of substances other than those prescribed or required for medical reasons: Yes Substance Use Type: Crack/Cocaine and Heroin Substance Use Frequency: Chronic Longstanding Last Used Substance: Hours (ago) Any prior treatment program specific to substance use: No Advance Directives: No Meds Allergies Allergy/AdvReac Type Severity Reaction Status Date / Time No Known Allergies Allergy Verified 03/15/20 04:57 [No Known Allergies*] Physical Exam Vital Signs: Vital Signs: Last Vital Signs Temp 99.1 F 03/15/20 10:43 Pulse 91 03/15/20 10:43 Resp 18 03/15/20 10:43 BP 135/76 03/15/20 10:43 Pulse Ox 99 03/15/20 10:43 Body Mass Index 21.2 Const: General: anxious and ill appearing Nutritional Appearance: average body habitus Orientation/consciousness: oriented to person and oriented to place Eyes: Sclerae: sclerae normal and scleral abnormal EOM: EOMs intact bilaterally Resp: Effort & Inspection: normal respiratory effort, no audible wheezes, no cough and not tachypneic Auscultation: clear to auscultation bilaterally Cardio: Jugular venous distension: no JVD Rate: regular rate Rhythm: regular rhythm GI: Inspection: Yes normal to inspection Neuro: General: oriented to person and oriented to place Extrem: Other: Left arm with an area of swelling and erythema involving the upper arm above the elbow with an incision and drainage site just above the popliteal fossa. Dressings were changed and the wounds repacked with iodoform gauze followed by dry sterile dressings. Discharge is noted to be suggestive of an infected hematoma, perhaps an intramuscular hematoma secondary to trauma due to IV drug abuse. No undrained collections are identified. Elbow/forearm/wrist images: 1. Area of erythema 2. Incision and drainage site left arm Psych: Affect: Anxious affect present Results Labs Result diagrams: 03/15/20 06:36 03/15/20 06:36 Labs: Abnormal lab results 03/14/20 03/14/20 03/15/20 Range/Units 23:32 23:32 00:19 WBC 22.6 H (4.8-10.8) X10*3/uL RBC 4.53 L (4.60-5.80) X10*6/uL Hgb 12.4 L (14.0-18.0) g/dl Hct 37.9 L (42-52) % Plt Count 466 H (160-400) X10*3/uL MPV (9.4-12.4) fL Neut % (Auto) 81.3 H (45-73) % Lymph % (Auto) 11.9 L (20-40) % [place] # (Auto) 1.4 H (0.1-1.2) X10*3/uL Abs Immat Gran (auto) 0.10 H (0.00-0.03) X10*3/uL Absolute Neuts (auto) 18.4 H (2.0-8.3) X10*3/uL Sodium 132 L (135-145) mmol/L Chloride 92 L (96-108) mmol/L Anion Gap 22 H (12-20) Calcium (8.4-10.2) mg/dL AST 46 H (5-37) U/L Total Protein 8.3 H (6.5-8.0) g/dL Urine Opiates Screen POSITIVE H (Not Detect) Urine Cocaine Screen POSITIVE H (Not Detect) 03/15/20 03/15/20 Range/Units 06:36 06:36 WBC 15.2 H (4.8-10.8) X10*3/uL RBC 3.99 L (4.60-5.80) X10*6/uL Hgb 11.1 L (14.0-18.0) g/dl Hct 33.6 L (42-52) % Plt Count (160-400) X10*3/uL MPV 9.3 L (9.4-12.4) fL Neut % (Auto) (45-73) % Lymph % (Auto) (20-40) % [place] # (Auto) (0.1-1.2) X10*3/uL Abs Immat Gran (auto) (0.00-0.03) X10*3/uL Absolute Neuts (auto) (2.0-8.3) X10*3/uL Sodium (135-145) mmol/L Chloride (96-108) mmol/L Anion Gap (12-20) Calcium 7.9 L D (8.4-10.2) mg/dL AST (5-37) U/L Total Protein (6.5-8.0) g/dL Urine Opiates Screen (Not Detect) Urine Cocaine Screen (Not Detect) Short CBC 03/14/20 03/15/20 Range/Units 23:32 06:36 WBC 22.6 H 15.2 H (4.8-10.8) X10*3/uL Hgb 12.4 L 11.1 L (14.0-18.0) g/dl Hct 37.9 L 33.6 L (42-52) % Plt Count 466 H 385 (160-400) X10*3/uL BMP 03/14/20 03/15/20 23:32 06:36 Sodium 132 L 138 Potassium 4.8 3.8 D Chloride 92 L 102 Carbon Dioxide 23 28 BUN 12 11 Creatinine 1.01 0.75 Calcium 9.5 7.9 L D Liver Function 03/14/20 Range/Units 23:32 Total Bilirubin 0.5 (0.0-1.0) mg/dL AST 46 H (5-37) U/L ALT 28 (0-40) U/L Alkaline Phosphatase 110 D (39-117) U/L Albumin 4.5 (3.5-5.0) g/dL Urine 03/15/20 Range/Units 00:19 Urine Color YELLOW Urine Appearance CLEAR Urine pH 6.5 (5.0-8.0) Ur Specific [place] <= 1.005 (1.005-1.025) Urine Protein NEG (NEG-TRACE) MG/DL Urine Glucose (UA) NEG (NEG) MG/DL All other labs normal. Assessment and Plan (1) Cellulitis and abscess of upper extremity: Status: Acute 24-year-old male with history of IVDA presenting with an abscess of the left upper arm status post incision and drainage in the emergency department. Wounds were examined and repacked with iodoform gauze. Patient will need dressi ng changes approximately twice daily and p.r.n.. No undrained abscess could be identified. Findings are suggestive of an infected hematoma. Agree with IV antibiotics. Will follow along during his hospitalization.
[2020-03-15] MEDS: oxyCODONE HCl Immed Release 5 MG TABLET PO ×2 (11:00→21:00)
--- NOTE | 2020-03-15 11:18 | PC.NURSE ---
seen by dr Armstrong for dressing change. brown purulent drainage from wound (2cm), red area surrounding wound is swollen and warm/tender to touch. wound packed and redressed by MD. patient aware of plan of care.
--- NOTE | 2020-03-15 11:25 | PC.NURSE ---
pt was assessed by Cathy Nolan and Karen Nieves from addiction services. pt to be given methadone per Cathy Nolan. Pt aware of plan of care.
--- NOTE | 2020-03-15 12:59 | P.EN_ITS ---
Event Note Date of Service: 03/15/20 Event Note: 24-year-old gentleman with history of IV drug abuse was recently s een at [facility] due to left upper arm swelling redness at site of injection and was diagnosed to have cellulitis and abscess, underwent I&D admission was recommended for continued IV antibiotic however patient left AMA, patient returned to ER for worsening pain and swelling and reported fall smelling drainage from the site of I and D patient now being admitted for IV antibiotics , patient seen by General surgery they recommend twice daily dressing no further abscess was noted for drainage, will follow blood culture and CBC In regard to illicit drug use patient seen by addiction team await for their recommendation meanwhile will continue oxycodone, clonidine and Atarax.
--- NOTE | 2020-03-15 14:24 | MHC.RECOVRN ---
Recovery Support Note: T/w met with pt at 1320 to check in to see how he was feeling. NAD. [facility] [facility]. The food is way better, do you even have a kitchen here? And I ring my garcia and get forgotten. Pt received methadone 20 mg shortly after t/w met with pt. Will continue to follow to assess for withdrawals and pts comfortability.
--- NOTE | 2020-03-15 15:02 | HO.ADDICT_ITS ---
History of Present Illness Date of Service: 03/15/2020 Chief Complaint: CELLULITIS/ABSCESS Reason for Consult: Opioid use disorder Requesting physician: Giselle Wang Discussed with referring provider: Yes Sources of Information: patient interviewed and chart reviewed HPI Narrative: Patient is a 24 year old male with opioid use disorder, history of endocarditis, currently medically admitted for abscess to left arm. Of note he was in ED one day ago and left AMA. Today consult requested to address opioid use disorder. Patient seen in bed 17 of main ED. He was awake, alert, engaged in interview. Current use reported as about a bundle a day . Last use reported as being 2/1 in the morning He is reporting withdrawal sx including nausea, body aches, restlessness, chills. Past Psychiatric History: Not reviewed Medical Evaluation Reviewed: Yes Prolonged EKG Personal & Social History: Unclear where he is living, initially stated he was homeless, then reported he was living in [place] Review of Systems Constitutional: Reports as per HPI Diagnostics Vital Signs (24Hr): Vital Signs - 24 hr 03/14/20 23:04 03/14/20 23:30 03/14/20 23:50 Temperature 98.4 F Pulse Rate 94 Respiratory Rate 15 15 15 Blood Pressure 134/75 Pulse Oximetry 98 03/15/20 00:00 03/15/20 00:50 03/15/20 02:00 Temperature 98.4 F 98.9 F Pulse Rate 94 79 84 Respiratory Rate 15 16 14 Blood Pressure 134/75 146/60 H 108/50 L Pulse Oximetry 98 98 98 03/15/20 04:00 03/15/20 05:46 03/15/20 06:00 Temperature Pulse Rate 96 78 77 Respiratory Rate 15 14 15 Blood Pressure 124/71 133/69 120/61 Pulse Oximetry 98 98 03/15/20 07:23 03/15/20 10:43 03/15/20 11:47 Temperature 99.1 F Pulse Rate 81 91 Respiratory Rate 20 18 16 Blood Pressure 122/56 L 135/76 Pulse Oximetry 97 99 03/15/20 11:48 Temperature Pulse Rate Respiratory Rate 16 Blood Pressure Pulse Oximetry Body Mass Index 21.2 Labs Results: 03/15/20 06:36 03/15/20 06:36 Labs: Laboratory Results - last 48 hr 03/14/20 03/14/20 03/14/20 23:32 23:32 23:32 WBC 22.6 H RBC 4.53 L Hgb 12.4 L Hct 37.9 L MCV 83.7 MCH 27.4 MCHC 32.7 RDW 12.8 Plt Count 466 H MPV 10.0 Immature Gran % (Auto) 0.4 Neut % (Auto) 81.3 H Lymph % (Auto) 11.9 L [place] % (Auto) 6.1 Eos % (Auto) 0.1 Baso % (Auto) 0.2 Lymph # (Auto) 2.7 [place] # (Auto) 1.4 H Eos # (Auto) 0.0 Baso # (Auto) 0.1 Abs Immat Gran (auto) 0.10 H Absolute Neuts (auto) 18.4 H Absolute Nucleated RBC 0.000 Nucleated RBC % (auto) 0.0 Sodium 132 L Potassium 4.8 Chloride 92 L Carbon Dioxide 23 Anion Gap 22 H BUN 12 Creatinine 1.01 Estim Creat Clear Calc 117.8 Estimated GFR > 60 Random Glucose 101 Lactic Acid Calcium 9.5 Total Bilirubin 0.5 AST 46 H ALT 28 Alkaline Phosphatase 110 D Total Protein 8.3 H Albumin 4.5 Urine Color Urine Appearance Urine pH Ur Specific [place] Urine Protein Urine Glucose (UA) Urine Ketones Urine Blood Urine Nitrite Ur Leukocyte Esterase Urine RBC Urine WBC Ur Squamous Epith Cells Urine Bacteria Urine Opiates Screen Ur Barbiturates Screen Ur Phencyclidine Scrn Ur Amphetamines Screen U Benzodiazepines Scrn Urine Cocaine Screen U Marijuana (THC) Screen Ethyl Alcohol COVID-19 ([place]) Negative COVID-19 Clin Com See Note 03/14/20 03/14/20 03/15/20 23:32 23:33 00:19 WBC RBC Hgb Hct MCV MCH MCHC RDW Plt Count MPV Immature Gran % (Auto) Neut % (Auto) Lymph % (Auto) [place] % (Auto) Eos % (Auto) Baso % (Auto) Lymph # (Auto) [place] # (Auto) Eos # (Auto) Baso # (Auto) Abs Immat Gran (auto) Absolute Neuts (auto) Absolute Nucleated RBC Nucleated RBC % (auto) Sodium Potassium Chloride Carbon Dioxide Anion Gap BUN Creatinine Estim Creat Clear Calc Estimated GFR Random Glucose Lactic Acid 1.0 Calcium Total Bilirubin AST ALT Alkaline Phosphatase Total Protein Albumin Urine Color YELLOW Urine Appearance CLEAR Urine pH 6.5 Ur Specific [place] <= 1.005 Urine Protein NEG Urine Glucose (UA) NEG Urine Ketones NEG Urine Blood TRACE Urine Nitrite NEG Ur Leukocyte Esterase NEG Urine RBC 1-4 Urine WBC 0-2 Ur Squamous Epith Cells TRACE Urine Bacteria NONE Urine Opiates Screen Ur Barbiturates Screen Ur Phencyclidine Scrn Ur Amphetamines Screen U Benzodiazepines Scrn Urine Cocaine Screen U Marijuana (THC) Screen Ethyl Alcohol < 10 COVID-19 ([place]) COVID-19 Clin Com 03/15/20 03/15/20 03/15/20 00:19 06:36 06:36 WBC 15.2 H RBC 3.99 L Hgb 11.1 L Hct 33.6 L MCV 84.2 MCH 27.8 MCHC 33.0 RDW 12.9 Plt Count 385 MPV 9.3 L Immature Gran % (Auto) Neut % (Auto) Lymph % (Auto) [place] % (Auto) Eos % (Auto) Baso % (Auto) Lymph # (Auto) [place] # (Auto) Eos # (Auto) Baso # (Auto) Abs Immat Gran (auto) Absolute Neuts (auto) Absolute Nucleated RBC 0.000 Nucleated RBC % (auto) 0.0 Sodium 138 Potassium 3.8 D Chloride 102 Carbon Dioxide 28 Anion Gap 12 BUN 11 Creatinine 0.75 Estim Creat Clear Calc 158.7 Estimated GFR > 60 Random Glucose 103 Lactic Acid Calcium 7.9 L D Total Bilirubin AST ALT Alkaline Phosphatase Total Protein Albumin Urine Color Urine Appearance Urine pH Ur Specific [place] Urine Protein Urine Glucose (UA) Urine Ketones Urine Blood Urine Nitrite Ur Leukocyte Esterase Urine RBC Urine WBC Ur Squamous Epith Cells Urine Bacteria Urine Opiates Screen POSITIVE H Ur Barbiturates Screen Not Detected Ur Phencyclidine Scrn Not Detected Ur Amphetamines Screen Not Detected U Benzodiazepines Scrn Not Detected Urine Cocaine Screen POSITIVE H U Marijuana (THC) Screen Not Detected Ethyl Alcohol COVID-19 ([place]) COVID-19 Clin Com Imaging Radiology Impressions: ITS Impressions Chest X-Ray 03/15/20 00:00 IMPRESSION: No evidence for acute disease. Forearm CT 03/15/20 00:21 IMPRESSION: Limited examination. Please note that ultrasound is an optimal modality for evaluation with greater soft tissue characterization than CT. There is subcutaneous gas noted in the soft tissues about the mid humerus with trace free fluid and areas of soft tissue heterogeneity possibly contact center representative of hemorrhage. Humerus CT 03/15/20 00:21 IMPRESSION: Limited examination. Please note that ultrasound is an optimal modality for evaluation with greater soft tissue characterization than CT. There is subcutaneous gas noted in the soft tissues about the mid humerus with trace free fluid and areas of soft tissue heterogeneity possibly contact center representative of hemorrhage. Mental Status Exam Mental Status Exam Patient Appearance: Appropriate Patient Orientation: Person, Place, Time and Situation Level of Consciousness: Awake, Appropriate and Alert Patient Behavior: Appropriate and Anxious Mood Description: Anxious Affect Description: Anxious Patient Cognition Impaired: No Speech Pattern: Clear Thought Process: Intact and Goal Oriented Thought Content: positive for Intact Judgement: Fair Medications Medications Current Medications Generic Name Dose Route Start Last Admin Trade Name Freq PRN Reason Stop Dose Admin Acetaminophen 650 mg 03/15/20 00:32 Acetaminophen Supp 650 Mg Supp.Rect TX Q6H PRN Pain, Mild (Pain Scale 1-3) Clonidine HCl 0.1 mg 03/15/20 02:15 Clonidine Hcl 0.1 Mg Tablet PO BID PRN Anxiety Protocol Piperacillin Sod/Tazobactam 50 mls @ 100 mls/hr 03/15/20 06:00 03/15/20 11:30 Sod 3.375 gm/ Sodium Chloride IV Infused Q6H MANUEL Infusion Vancomycin HCl 750 mg/ 275 mls @ 183.333 mls/hr 03/15/20 13:00 03/15/20 13:38 Vancomycin HCl 500 mg/ Sodium IV 183.33 mls/hr Chloride Q12H MANUEL Administration Ketorolac Tromethamine 15 mg 03/15/20 00:34 03/15/20 10:59 Ketorolac Tromethamine 30 Mg/Ml Vial IVPUSH 03/20/20 00:33 15 mg Q6H PRN Administration Pain, Severe (Pain Scale 7-10) Oxycodone HCl 5 mg 03/15/20 02:15 03/15/20 11:00 Oxycodone Hcl Immed Release 5 Mg Tablet PO 5 mg Q4H PRN Administration Pain, Moderate (Pain Scale 4-6 Pharmacy Consult 1 each 03/14/20 23:58 Consult Rx Vancomycin Dosing MISCELLANE DAILY PRN Consult order Sodium Chloride 3 ml 03/15/20 08:00 03/15/20 08:00 0.9 % Sodium Chloride Flush 3 Ml Syringe IVFLUSH 3 ml QSHIFT MANUEL Administration Trazodone HCl 25 mg 03/15/20 02:15 Trazodone Hcl 25 Mg Halftab PO BEDTIME PRN Insomnia Allergies Allergies Allergy/AdvReac Type Severity Reaction Status Date / Time No Known Allergies Allergy Verified 03/15/20 04:57 [No Known Allergies*] Assessment & Plan Assessment & Plan (1) Opioid use disorder: Status: Acute Code(s): F11.99 - Opioid use, unspecified with unspecified opioid-induced disorder Recommendations: * Discussed treatment options, based on need for pain control methadone agreed upon * Starting dose of 20mg ordered. If withdrawal sx persist, this evening he may receive an additional 10mg * Use clonidine to assist with anxiety related to withdrawal * May require higher doses of pain medications based on opioid tolerance * Monitor EKG as EKG from 03/14 showed prolonged QT * Monitor for oversedation * Will follow Greater than 50% of the session was spent on counseling and/or coordination of care [facility] Past Medical History Medical History ADHD Anxiety Asthma GERD (gastroesophageal reflux disease) Insomnia Substance abuse Social History Social History Smoking Status: Never smoker Use of substances other than those prescribed or required for medical reasons: Yes Substance Use Type: Crack/Cocaine and Heroin Substance Use Frequency: Chronic Longstanding Last Used Substance: Hours (ago) Any prior treatment program specific to substance use: No Advance Directives: No
--- NOTE | 2020-03-15 16:12 | MHC.RECOVRN ---
Recovery Support Note: Checked in with pt to assess withdrawal symptoms after receiving 20 mg methadone. Pt anxious, agitated. Otherwise does not appear in any distress. Pt reports diarrhea, nausea, sweating. Discussed with Cathy Nolan CNP and per her assessment and plan pt may receive additional 10 mg this evening if withdrawal symptoms persist and encouraged to use clonidine to assist with anxiety. Will continue to follow.
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
--- NOTE | 2020-03-15 20:24 | MHC.CM.PN ---
CM completed HCP per pt request, naming his father, Dalton Millan, as HCP([phone]).Copies given to pt and copy uploaded into [employer]. CM to follow for d/c needs
[2020-03-15] MEDS: cloNIDine HCL 0.1 MG TABLET PO (21:00)
[2020-03-15] MEDS: traZODone HCL 25 MG HALFTAB PO (21:01)
[2020-03-16] VITALS (9 sets, daily range): BP systolic 117–149; BP diastolic 64–77; PULSE 65–84; RESP 15–20; TEMP 36.2–37.1; O2SAT 97–99
--- NOTE | 2020-03-16 | ECG_ITS ---
Test Reason : PROLONGED QT Blood Pressure : / mmHG Vent. Rate : 067 BPM Atrial Rate : 067 BPM P-R Int : 160 ms QRS Dur : 094 ms QT Int : 442 ms P-R-T Axes : 039 058 038 degrees QTc Int : 467 ms Normal sinus rhythm with sinus arrhythmia Normal ECG When compared with ECG of 15-MAR-2020 00:20, No significant change was found Referred By: Giselle Wang Electronically Signed By:ASHLEY BHAT MD
[2020-03-16] MEDS: Morphine Sulfate ER 15 MG TABLET.ER PO (00:35)
--- NOTE | 2020-03-16 03:07 | PC.NURSE ---
Pt refusing to wear telemonitor. Educated pt on importance of complying with the plan of care, will continue to encourage pt to comply with care plan, will continue to educate pt on reasons it is important to monitor heart rate and rhythm with patient health status.
[2020-03-16] MEDS: oxyCODONE HCl Immed Release 5 MG TABLET PO ×2 (05:51→20:38)
[2020-03-16] MEDS: Piperacillin Sodium/Tazobactam 3.375 GM in 0.9 % Sodium Chloride 50 ML IV ×3 (05:59→18:01)
--- NOTE | 2020-03-16 07:30 | CA_ITS ---
Transthoracic Echocardiogram Patient (Last, First, Middle): Collin Millan, Gender: Male Date of : 1995 Age: 24 Procedure Date: 03/16/2020 Procedure Type: Transthoracic Echocardiogram Location: S3E Height: 187.96 cm Weight: 74.84 kg BSA: 2.00 m2 Heart Rate: bpm BP: 120 / 61 mmHg Circus Laborer: Referring MD: Niko Phoenix MD Bow Maker Machine Tender: Nigel العلي MD Symptoms: ?endocarditis; pt with hx endocarditis Study Quality: Excellent ECG Rhythm: Sinus Conclusions: - 1. No clear vegetations seen on this study 2. Normal LV systolic and diastolic function 3. Moderate to severe tricuspid regurgitation with mildly dilated right-sided chambers 4. Normal RV systolic pressure 5. No pericardial effusion Findings Left Ventricle Normal left ventricular size, thickness, and systolic function. The visually estimated ejection fraction is between 60-65%. Diastolic function is normal for age. Right Ventricle Mildly increased right ventricular cavity size. There is normal right ventricular systolic function. Atria The left atrium is normal in size. There is no evidence of interatrial shunt. The right atrium is likely dilated. Aortic Valve Normal aortic valve structure and function. There is no aortic valve stenosis. There is no aortic valve regurgitation. Mitral Valve Normal mitral valve structure and function. There is trace mitral valve regurgitation. There is no mitral valve stenosis. Pulmonic Valve The pulmonic valve is likely normal. Tricuspid Valve Normal tricuspid valve structure. There is moderate to severe tricuspid valve regurgitation. The right ventricular systolic pressure is normal. The right ventricular systolic pressure is 20 mmHg. Normal right atrial pressure. There is no evidence of pulmonary hypertension. Great Vessels All visible segments of the aorta are normal in size. The pulmonary artery was not well visualized. Venous The inferior vena cava is normal in size and collapses greater than 50% with inspiration. Pericardium/Pleural There is no evidence of pericardial effusion. Prior Study Comparison No prior study available for comparison. Recommendations, Care & Conclusions Consider a AYESHA if clinically appropriate. Measurements 2D Linear Measurements IVSd: 0.98 0.6-0.9/0.6-1.0 cm LVIDd: 5.21 3.9-5.3/4.2-5.9 cm LVIDd Index: 2.61 2.4-3.2/2.2-3.1 cm/m2 LVIDs: 3.21 2.0-3.6 cm LVPWd: 0.90 0.7-1.1 cm Ao Root: 3.20 2.1-3.5 cm LA Diam: 3.80 2.7-3.8/3.0-4.0 cm LAIDs Index: 1.90 1.5-2.3 cm/m2 LV Mass: 223.89 67-162/88-224 g LV Mass Index: 111.95 43-95/49-115 g/m2 LVOT Diam: 2.40 3.0+(-)1.3 cm Mitral Valve MV Pk E: 0.78 MV PK A: 0.57 MV Decel Time: 289.00 E/A: 1.40 E'Lateral: 18.10 E'Medial: 53.40 E/E' Med: 1.50 E/E' Lat: 4.30 PHT: 85.00 MVA PHT: 2.59 Decel Cuming: 2.69 Aortic Valve AoV Pk Ryan: 1.39 AoV Mn Ryan: 0.85 AoV VTI: 0.28 AoV Pk Grad: 8.00 Aov Mn Grad: 4.00 LEA Cont.VTI: 3.33 LVOT LVOT Pk Ryan: 1.03 LVOT Mn Ryan: 0.74 LVOT VTI: 0.21 LVOT Pk Grad: 4.00 LVOT Mn Grad: 3.00 LVOT Diam: 2.40 LVOT Area: 4.52 Diastolic Function MV Pk E: 0.78 MV Pk A: 0.57 E/A: 1.40 E'Medial: 53.40 E/E' Med: 1.50 E' Laterial: 18.10 E/E' Lat: 4.30 Tricuspid Valve TR Pk Ryan: 2.08 TR Pk Grad: 17.00 RA Press: 3.00 RVSP: 20.00 Great Vessels Aorta Ao Root-2D: 3.20 2.0-3.7 cm Ao Asc: 3.20 2.1-3.4 cm Pulmonary Valve PV Pk Ryan: 0.96 Peak PV Grad: 4.00 Updated in Other Vendor System with Status of Final Nigel العلي MD electronically signed on 03/16/2020 1:51:25 PM with status of Final
--- NOTE | 2020-03-16 08:32 | P.PNGS_ITS ---
Subjective Subjective Date of Service: 03/16/20 Interval history: Patient continues to complain of left arm pain and difficulty straightening his arm, but does feel improved compared to yesterday. He reports chills this morning. Physical Exam Vital Signs: Vital Signs: Last Vital Signs Temp 98.7 F 03/16/20 07:53 Pulse 65 03/16/20 07:53 Resp 15 03/16/20 07:53 BP 141/75 H 03/16/20 07:53 Pulse Ox 98 03/16/20 07:53 Body Mass Index 21.2 Const: Other: Sleepy, slurring words. Oriented to person and place Resp: Other: Breathing comfortably on room air, Extrem: Other: Left arm dressings changed. A large amount of mucopurulent discharge on dressing. Erythema and edema in the left arm is much improved. Incision site is open and draining appropriately. Lynnette advanced and clean dressings applied. Progress Note: A&P Assessment and plan (1) Cellulitis and abscess of upper extremity: Status: Acute Assessment and Plan: Hospital day 2 status post incision and drainage of an abscess of the left arm performed by the ER physicians. Overall the left arm appears much improved with decreased erythema and edema. The wound is open and draining. Packing was left in place in the overlying dressings changed. Patient tolerated the dressing change well. Continue local care and IV antibiotics. Fall Risk Details Current Medications: Current Medications Generic Name Dose Route Start Last Admin Trade Name Freq PRN Reason Stop Dose Admin Acetaminophen 650 mg 03/15/20 00:32 Acetaminophen Supp 650 Mg Supp.Rect PA Q6H PRN Pain, Mild (Pain Scale 1-3) Clonidine HCl 0.1 mg 03/15/20 02:15 03/15/20 21:00 Clonidine Hcl 0.1 Mg Tablet PO 0.1 mg BID PRN Administration Anxiety Protocol Piperacillin Sod/Tazobactam 50 mls @ 100 mls/hr 03/15/20 06:00 03/16/20 06:32 Sod 3.375 gm/ Sodium Chloride IV Infused Q6H MANUEL Infusion Vancomycin HCl 750 mg/ 275 mls @ 183.333 mls/hr 03/15/20 13:00 03/16/20 02:00 Vancomycin HCl 500 mg/ Sodium IV Infused Chloride Q12H MANUEL Infusion Ketorolac Tromethamine 15 mg 03/15/20 00:34 03/15/20 10:59 Ketorolac Tromethamine 30 Mg/Ml Vial IVPUSH 03/20/20 00:33 15 mg Q6H PRN Administration Pain, Severe (Pain Scale 7-10) Oxycodone HCl 5 mg 03/15/20 02:15 03/16/20 05:51 Oxycodone Hcl Immed Release 5 Mg Tablet PO 5 mg Q4H PRN Administration Pain, Moderate (Pain Scale 4-6 Pharmacy Consult 1 each 03/14/20 23:58 Consult Rx Vancomycin Dosing MISCELLANE DAILY PRN Consult order Sodium Chloride 3 ml 03/15/20 08:00 03/16/20 00:38 0.9 % Sodium Chloride Flush 3 Ml Syringe IVFLUSH Not Given QSHIFT [facility] Trazodone HCl 25 mg 03/15/20 02:15 03/15/20 21:01 Trazodone Hcl 25 Mg Halftab PO 25 mg BEDTIME PRN Administration Insomnia Time Spent With Patient Time: Total time spent is greater than 50% in coordination of care (as documented) at patient's floor/unit and/or counseling patient: Time with patient: 25 - 35 minutes
[2020-03-16] MEDS: 0.9 % Sodium Chloride Flush 3 ML SYRINGE IVFLUSH ×3 (08:53→20:38)
--- NOTE | 2020-03-16 09:17 | MHC.RECOVRN ---
Recovery Support Note: Checked in with pt to see assess comfortability and withdrawal symptoms. Pt reports feeling horrible, nausea, diarrhea . Pt would like methadone now but would eventually want Suboxone. Pt appears in obvious discomfort, agitated, anxious, pillow over head, constantly moving around in bed. Discussed with Cathy Nolan CNP, who will order 20 mg methadone now and t/w will reassess. Will continue to follow.
--- NOTE | 2020-03-16 09:52 | MHC.CM.PN ---
CM met with Patient to discuss dc planning. D/T Patients Substance Abuse, if LT IVABT is necessary, [facility] [place] will [facility] option ([facility] @ [place] has already denied). CM will follow for dc planning and possible need to adjust the dc plan.
--- NOTE | 2020-03-16 11:24 | HO.PM.IMPN ---
Subjective Subjective Date of Service: 03/17/20 Interval History: Patient requesting for higher dose of methadone, since complaining of chills, generalized pain, body aches, no fevers, no other acute issues overnight. General no headache, no dizziness, chills and generalized pain. CVS no chest pain, no palpitation. Respiratory no cough, no shortness of Gastrointestinal no nausea no vomiting, no abdominal pain Physical Exam Vital Signs: Vital Signs: Last Vital Signs Temp 98.7 F 03/16/20 08:00 Pulse 65 03/16/20 08:00 Resp 15 03/16/20 08:00 BP 141/72 H 03/16/20 08:00 Pulse Ox 98 03/16/20 08:00 Body Mass Index 21.2 General mild distress due to pain. Neck is supple no JVD. CVS regular rate rhythm, systolic murmur Respiratory lungs clear to auscultation, no respiratory distress Gastrointestinal abdomen soft, nontender, bowel sounds audible, no guarding , no rigidity. Extremities left upper extremity, dressing in place left upper arm with improvement in left arm swelling and redness Neuro nonfocal Objective Data Current Medications Generic Name Dose Route Start Last Admin Trade Name Freq PRN Reason Stop Dose Admin Acetaminophen 650 mg 03/15/20 00:32 Acetaminophen Supp 650 Mg Supp.Rect [place] Q6H PRN Pain, Mild (Pain Scale 1-3) Clonidine HCl 0.1 mg 03/15/20 02:15 03/15/20 21:00 Clonidine Hcl 0.1 Mg Tablet PO 0.1 mg BID PRN Administration Anxiety Protocol Piperacillin Sod/Tazobactam 50 mls @ 100 mls/hr 03/15/20 06:00 03/16/20 06:32 Sod 3.375 gm/ Sodium Chloride IV Infused Q6H MANUEL Infusion Vancomycin HCl 750 mg/ 275 mls @ 183.333 mls/hr 03/15/20 13:00 03/16/20 02:00 Vancomycin HCl 500 mg/ Sodium IV Infused Chloride Q12H MANUEL Infusion Ketorolac Tromethamine 15 mg 03/15/20 00:34 03/15/20 10:59 Ketorolac Tromethamine 30 Mg/Ml Vial IVPUSH 03/20/20 00:33 15 mg Q6H PRN Administration Pain, Severe (Pain Scale 7-10) Methadone HCl 20 mg 03/16/20 09:15 Methadone Hcl 1 Mg/0.1 Ml Oral.Conc PO DAILY [facility] Oxycodone HCl 5 mg 03/15/20 02:15 03/16/20 05:51 Oxycodone Hcl Immed Release 5 Mg Tablet PO 5 mg Q4H PRN Administration Pain, Moderate (Pain Scale 4-6 Pharmacy Consult 1 each 03/14/20 23:58 Consult Rx Vancomycin Dosing MISCELLANE DAILY PRN Consult order Sodium Chloride 3 ml 03/15/20 08:00 03/16/20 08:53 0.9 % Sodium Chloride Flush 3 Ml Syringe IVFLUSH 3 ml QSHIFT MANUEL Administration Trazodone HCl 25 mg 03/15/20 02:15 03/15/20 21:01 Trazodone Hcl 25 Mg Halftab PO 25 mg BEDTIME PRN Administration Insomnia Labs CBC & Chem 7: 03/15/20 06:36 03/15/20 06:36 Microbiology Microbiology Results: Microbiology 03/14/20 23:32 Blood - Venous Blood Culture - Final Coag negative Staphylococcus 03/14/20 23:32 Blood - Venous Blood Culture - Preliminary No growth after 24 hours. Assessment and Plan (1) Opioid use disorder: Status: Acute (2) Cellulitis and abscess of upper extremity: Status: Acute Assessment and Plan: 24-year-old male with a past medical history of anxiety, depression, polysubstance abuse, IV drug abuse, history of endocarditis presented to the hospital with a chief complaint of left arm pain redness and swelling. Noted to have cellulitis/abscess of the left arm Status post I&D in the ER with 200 cc of pus removed. Started on IV antibiotics. Left arm cellulitis/abscess: Left arm swelling and redness is improving patient continued to complain of pain and chills no fevers noted, WBC trending down, 1/2 blood culture positive for gram-positive cocci Venous duplex negative for DVT. CT scan of left upper extremity showed subcutaneous gas in the soft tissue with trace free fluid in areas of soft tissue heterogeneity. Status post I&D in the ER. Patient seen by Dr. Rodas patient did not require any further I&D dressing being done by surgery Continue vanc and Zosyn. Follow Vanco trough and renal function Follow Echocardiogram. History of IVDA/opiate dependence: Patient being followed by addiction team and has been started on methadone is scheduled and as needed. Asthma: Stable DVT prophylaxis: SCD boots
[2020-03-16 12:38] LABS: Vancomycin Trough 3.6 mcg/mL (10.0-20.0)
--- NOTE | 2020-03-16 13:30 | PC.NURSE ---
Echo done at bedside at 11:30 and EKG done at 13:30. Denies CP
--- NOTE | 2020-03-16 13:41 | MHC.RECOVRN ---
Patient requested more methadone for today and to switch to Suboxone tomorrow. Pt was educated and understands that is not possible. Pt would ideally like to continue methadone after discharge but denies having transportation. Pt continues to c/o being sick, I'm scared to move because I'm going to have diarrhea. During conversation pt requested to take a nap which cut the conversation short. T/w discussed case with CM. Will continue to follow.
--- NOTE | 2020-03-16 20:09 | PM.EVENT ---
Event Note Date of Service: 03/16/20 Event Note: Addiction follow up: Patient tolerating methadone 20mg. Still reports feeling mild withdrawal sx. Has decided he wants to continue MAT beyond this admission. He reports having no history of MAT beyond medical and detox admissions Follow up EKG no change Plan: -Will increase methadone to 30mg QD - Recovery client support coordinator to start process for OTP admission so that patient can continue once discharged -Unclear when discharge date is or if he will require SNF admission for abx -will continue to follow
--- NOTE | 2020-03-16 20:41 | MHC.RECOVSUP ---
? Reason for consult: New on MAT o Current location: 372 o Identified substance use concern: Heroin - Support o Community resources provided o Harm reduction discussion o Patient to follow up with [facility] after discharge ? Additional information:
[2020-03-16] MEDS: cloNIDine HCL 0.1 MG TABLET PO (20:51)
[2020-03-17] MEDS: Piperacillin Sodium/Tazobactam 3.375 GM in 0.9 % Sodium Chloride 50 ML IV ×4 (01:16→16:48)
[2020-03-17 03:40] VITALS: BP 128/72; PULSE 69; RESP 20; TEMP 36.3; O2SAT 100
[2020-03-17] MEDS: 0.9 % Sodium Chloride Flush 3 ML SYRINGE IVFLUSH ×2 (08:20→16:48)
[2020-03-17] MEDS: oxyCODONE HCl Immed Release 5 MG TABLET PO ×3 (08:22→22:10)
--- NOTE | 2020-03-17 08:53 | PM.PNGS ---
Subjective Subjective Date of Service: 03/17/20 Interval history: Patient is sleepy but easily arousable. He reports decreased left arm pain and improvement in mobility. Physical Exam Vital Signs: Vital Signs: Last Vital Signs Temp 97.4 F 03/17/20 03:40 Pulse 69 03/17/20 03:40 Resp 20 03/17/20 03:40 BP 128/72 03/17/20 03:40 Pulse Ox 100 03/17/20 03:40 Body Mass Index 21.2 Const: Other: Awake, alert, no acute distress Resp: Other: Breathing comfortably on room air, no shortness of breath Skin: Other: Warm and dry, no rash, see extremities below Extrem: Other: Left arm dressings changed. Small amount of bloody discharge on dressings. I and D site is open and packing removed. Cellulitis is now gone as is the edema. Minimal tenderness to palpation. Clean sterile dressings applied. Left upper extremity: full ROM Progress Note: A&P Assessment and plan (1) Cellulitis and abscess of upper extremity: Status: Acute Assessment and Plan: 24-year-old male patient with history of IVDA developed an abscess of the right upper arm, incised and drained in the emergency department, examination today reveals a marked improvement in the cellulitis and no further undrained abscess. Continue local wound care with daily dressing changes. Antibiotic management per primary team. Fall Risk Details Current Medications: Current Medications Generic Name Dose Route Start Last Admin Trade Name Freq PRN Reason Stop Dose Admin Acetaminophen 650 mg 03/15/20 00:32 Acetaminophen Supp 650 Mg Supp.Rect [place] Q6H PRN Pain, Mild (Pain Scale 1-3) Clonidine HCl 0.1 mg 03/16/20 18:11 03/16/20 20:51 Clonidine Hcl 0.1 Mg Tablet PO 0.1 mg TID PRN Administration Anxiety Protocol Piperacillin Sod/Tazobactam 50 mls @ 100 mls/hr 03/15/20 06:00 03/17/20 07:10 Sod 3.375 gm/ Sodium Chloride IV Infused Q6H MANUEL Infusion Vancomycin HCl 750 mg/ 275 mls @ 183.333 mls/hr 03/16/20 13:30 03/17/20 06:25 Vancomycin HCl 500 mg/ Sodium IV Infused Chloride Q8H MANUEL Infusion Ketorolac Tromethamine 15 mg 03/15/20 00:34 03/15/20 10:59 Ketorolac Tromethamine 30 Mg/Ml Vial IVPUSH 03/20/20 00:33 15 mg Q6H PRN Administration Pain, Severe (Pain Scale 7-10) Methadone HCl 30 mg 03/17/20 09:00 03/17/20 08:20 Methadone Hcl 1 Mg/0.1 Ml Oral.Conc PO 30 mg DAILY MANUEL Administration Oxycodone HCl 5 mg 03/15/20 02:15 03/17/20 08:22 Oxycodone Hcl Immed Release 5 Mg Tablet PO 5 mg Q4H PRN Administration Pain, Moderate (Pain Scale 4-6 Pharmacy Consult 1 each 03/14/20 23:58 Consult Rx Vancomycin Dosing MISCELLANE DAILY PRN Consult order Sodium Chloride 3 ml 03/15/20 08:00 03/17/20 08:20 0.9 % Sodium Chloride Flush 3 Ml Syringe IVFLUSH 3 ml QSHIFT MANUEL Administration Trazodone HCl 25 mg 03/15/20 02:15 03/15/20 21:01 Trazodone Hcl 25 Mg Halftab PO 25 mg BEDTIME PRN Administration Insomnia Time Spent With Patient Time: Total time spent is greater than 50% in coordination of care (as documented) at patient's floor/unit and/or counseling patient: Time with patient: 15 - 24 minutes
[2020-03-17 11:43] VITALS: BP 132/62; PULSE 64; RESP 16; TEMP 36.5; O2SAT 99
[2020-03-17 13:17] LABS: Vancomycin Trough 10.3 mcg/mL (10.0-20.0)
--- NOTE | 2020-03-17 14:07 | MHC.RECOVRN ---
T/w, along with Recovery Briquette Machine Operator, met with pt to discuss plan regarding MOUD. Pt would like to continue methadone, however, has many barriers including not having an ID (which is required at any OTP). Pt understands that due to barriers methadone is not an option at this time. Instead, pt would like to d/c from [facility] to an ATS to continue tapering off methadone. Pt is aware that Suboxone would be an option at that point but declines wanting that at this time. Case discussed with Cathy Nolan CNP, who is willing to begin the taper while patient is still admitted at [facility].
--- NOTE | 2020-03-17 15:11 | MHC.RECOVRN ---
Recovery Support Note: Pt requesting to continue on 30 mg methadone while at [facility] and taper at ATS upon discharge. Pt is willing to go to any ATS that has a bed upon d/c but would prefer [facility]. Catyh Nolan CNP and Quyen PETERSEN aware.
[2020-03-17 15:46] VITALS: BP 131/67; PULSE 67; RESP 16; TEMP 36.6
--- NOTE | 2020-03-17 17:21 | HO.PM.IMPN ---
Subjective Subjective Date of Service: 03/17/20 Interval History: Patient feeling better is still complaining of pain, is very motivated to abstain from illicit drug use, denies nausea vomiting no fever chills, no acute issues overnight, no significant withdrawal symptoms. General no headache, no dizziness, left arm pain, no chills. CVS no chest pain, no palpitation. Respiratory no cough, no shortness of Gastrointestinal no nausea no vomiting, no abdominal pain Physical Exam Vital Signs: Vital Signs: Last Vital Signs Temp 97.8 F 03/17/20 15:46 Pulse 67 03/17/20 15:46 Resp 16 03/17/20 15:46 BP 131/67 03/17/20 15:46 Pulse Ox 99 03/17/20 11:43 Body Mass Index 21.2 General resting comfortably no distress. Neck is supple no JVD. CVS regular rate rhythm, systolic murmur Respiratory lungs clear to auscultation, no respiratory distress Gastrointestinal abdomen soft, nontender, bowel sounds audible, no guarding , no rigidity. Extremities left upper extremity less swelling, and redness, dressing in place no drainage. Neuro nonfocal Objective Data Current Medications Generic Name Dose Route Start Last Admin Trade Name Freq PRN Reason Stop Dose Admin Acetaminophen 650 mg 03/15/20 00:32 Acetaminophen Supp 650 Mg Supp.Rect [place] Q6H PRN Pain, Mild (Pain Scale 1-3) Clonidine HCl 0.1 mg 03/16/20 18:11 03/16/20 20:51 Clonidine Hcl 0.1 Mg Tablet PO 0.1 mg TID PRN Administration Anxiety Protocol Piperacillin Sod/Tazobactam 50 mls @ 100 mls/hr 03/15/20 06:00 03/17/20 16:48 Sod 3.375 gm/ Sodium Chloride IV 100 mls/hr Q6H MANUEL Administration Vancomycin HCl 750 mg/ 275 mls @ 183.333 mls/hr 03/16/20 13:30 03/17/20 14:53 Vancomycin HCl 500 mg/ Sodium IV Infused Chloride Q8H MANUEL Infusion Ketorolac Tromethamine 15 mg 03/15/20 00:34 03/15/20 10:59 Ketorolac Tromethamine 30 Mg/Ml Vial IVPUSH 03/20/20 00:33 15 mg Q6H PRN Administration Pain, Severe (Pain Scale 7-10) Methadone HCl 30 mg 03/17/20 09:00 03/17/20 08:20 Methadone Hcl 1 Mg/0.1 Ml Oral.Conc PO 30 mg DAILY MANUEL Administration Oxycodone HCl 5 mg 03/15/20 02:15 03/17/20 12:26 Oxycodone Hcl Immed Release 5 Mg Tablet PO 5 mg Q4H PRN Administration Pain, Moderate (Pain Scale 4-6 Pharmacy Consult 1 each 03/14/20 23:58 Consult Rx Vancomycin Dosing MISCELLANE DAILY PRN Consult order Sodium Chloride 3 ml 03/15/20 08:00 03/17/20 16:48 0.9 % Sodium Chloride Flush 3 Ml Syringe IVFLUSH 3 ml QSHIFT MANUEL Administration Trazodone HCl 25 mg 03/15/20 02:15 03/15/20 21:01 Trazodone Hcl 25 Mg Halftab PO 25 mg BEDTIME PRN Administration Insomnia Labs CBC & Chem 7: 03/15/20 06:36 03/15/20 06:36 Microbiology Microbiology Results: Microbiology 03/14/20 23:32 Blood - Venous Blood Culture - Preliminary No growth after 48 hours. 03/14/20 23:32 Blood - Venous Blood Culture - Final Coag negative Staphylococcus Assessment and Plan (1) Cellulitis and abscess of upper extremity: Status: Acute (2) Opioid use disorder: Status: Acute Assessment and Plan: 24-year-old male with a past medical history of anxiety, depression, polysubstance abuse, IV drug abuse, history of endocarditis presented to the hospital with a chief complaint of left arm pain redness and swelling. Noted to have cellulitis/abscess of the left arm Status post I&D in the ER with 200 cc of pus removed. Started on IV antibiotics. Left arm cellulitis/abscess: Left arm swelling and redness is improving patient pain is better controlled, no chills no fevers noted, WBC trending down, 1/2 blood culture positive for coag negative staph. Venous duplex negative for DVT. CT scan of left upper extremity showed subcutaneous gas in the soft tissue with trace free fluid in areas of soft tissue heterogeneity. Status post I&D in the ER. Patient seen by Dr. Rodas patient did not require any further I&D dressing being done by surgery Will DC vanc and continue Zosyn. Follow renal function Echocardiogram showed EF 60-65% and moderate to severe tricuspid regurgitation, delilah recommended if high suspicion for endocarditis but since blood cultures are negative, patient feeling better will hold off on further workup. History of IVDA/opiate dependence: Patient being followed by addiction team and has been started on methadone and patient is planning to continue methadone as outpatient, significant improvement in withdrawal symptoms with use of methadone. Asthma: Stable DVT prophylaxis: SCD boots
[2020-03-17 19:47] VITALS: BP 133/77; PULSE 63; RESP 16; TEMP 36.8; O2SAT 100
[2020-03-17] MEDS: cloNIDine HCL 0.1 MG TABLET PO (22:11)
[2020-03-17] MEDS: traZODone HCL 25 MG HALFTAB PO (22:11)
[2020-03-18] MEDS: 0.9 % Sodium Chloride Flush 3 ML SYRINGE IVFLUSH ×2 (00:46→11:17)
[2020-03-18] MEDS: Piperacillin Sodium/Tazobactam 3.375 GM in 0.9 % Sodium Chloride 50 ML IV ×3 (00:47→11:17)
[2020-03-18 03:51] VITALS: BP 136/68; PULSE 72; RESP 16; TEMP 36.3; O2SAT 96
[2020-03-18 06:35] LABS: MANUAL DIFF FLAG NO
[2020-03-18 06:41] LABS: Basophils Absolute Auto 0.1 X10*3/uL (0.0-0.2); Basophils Percent Auto 0.9 % (0-2); Eosinophils Absolute Auto 0.7 X10*3/uL (0.0-0.4); Eosinophils Percent Auto 10.6 % (0-4); Hematocrit 39.6 % (42-52); Hemoglobin 12.4 g/dl (14.0-18.0); Imm Gran Abs Auto 0.17 X10*3/uL (0.00-0.03); Imm Gran Pct Auto 2.5 % (0.0-0.4); Lymphocytes Absolute Auto 2.2 X10*3/uL (1.2-4.9); Lymphocytes Percent Auto 32.4 % (20-40); Mean Corpuscular HGB Conc 31.3 g/dl (31.0-36.0); Mean Corpuscular Hemoglobin 26.9 pg (27.0-33.0); Mean Corpuscular Volume 85.9 fL (80-98); Mean Platelet Volume 9.2 fL (9.4-12.4); Monocytes Absolute Auto 0.7 X10*3/uL (0.1-1.2); Monocytes Percent Auto 9.7 % (2-11); Neutrophils Absolute Auto 2.9 X10*3/uL (2.0-8.3); Neutrophils Percent Auto 43.9 % (45-73); Platelet Count 513 X10*3/uL (160-400); Red Blood Count 4.61 X10*6/uL (4.60-5.80); Red Cell Distribution Width 13.4 % (11.0-16.0); White Blood Count 6.7 X10*3/uL (4.8-10.8)
[2020-03-18 07:11] LABS: Anion Gap 17 (12-20); Blood Urea Nitrogen 10 mg/dL (9-16); Calcium 8.9 mg/dL (8.4-10.2); Carbon Dioxide 21 mmol/L (22-29); Chloride 108 mmol/L (96-108); Creatinine Clr Calc Pharmacy 158.7; Estimated Glomerular Filt Rate > 60; Glucose Random 91 mg/dL (60-115); Potassium 4.5 mmol/L (3.3-5.1); Sodium 141 mmol/L (135-145)
--- NOTE | 2020-03-18 11:11 | MHC.CM.PN ---
Per Karen, Recovery Support RN, Goal for dc is directly to [facility] to wean from Methadone. CM will continue to follow for dc planning and possible need to adjust the dc plan.
--- NOTE | 2020-03-18 13:04 | MHC.CM.PN ---
nurse caree online merchandising manager note electronic medical record [id number] along with case discussed on multiple disciplinary rounds, case also discussed with patient and arash Driver NURSE W WORKING WITH SUBSTANCE ABUSE WITH [employer], PATIENT HAS BEEN ACCEPTED BY [facility] FOR DETOX HE IS CUIRTRRENTLY N METHADONE AND IS TRYING TO WESN OFF (HE WILL BE INPATIENT) ACTION WHEELCHAIR VAN ARRANGED FOR 4PM TRANSPORT . [id number] PERCUSSION INSTRUMENT REPAIRER AND SATAFF NURSE are aware
[2020-03-18 13:21] LABS: Vancomycin Trough < 3.0 mcg/mL (10.0-20.0)
--- NOTE | 2020-03-18 13:40 | PM.DS ---
DS: Providers Provider Date of Service: 03/18/20 Date of admission: 03/15/20 00:32 Primary care physician: None Physician Consults: 03/15/20 00:27 Consult to General Surgery Routine Consulting Provider: Francois Rodas Reason for consultation: LUE abscess; Drained 200cc pus with I&D in ER. Has provider been notified: No 03/15/20 05:34 Consult to Psychiatry Stat Consulting Provider: Cathy Nolan Reason for consultation: Medication adjustments DS: Diagnosis Discharge Diagnosis (1) Cellulitis and abscess of upper extremity: Status: Acute (2) Opioid use disorder: Status: Acute DS: Medications Discharge Medications Home Medications: Previous Rx's Medication Instructions Recorded amoxicillin-pot clavulanate 1 tab PO BID #14 tab 03/18/20 [Augmentin] doxycycline hyclate 100 mg PO DAILY #14 cap 03/18/20 DS: Summary Hospital Course Hospital Course: History of presenting illness Chief Complaint: Left upper extremity pain/redness/swelling 24-year-old male with a past medical history of substance abuse/IV drug abuse, anxiety, depression, asthma, GERD, history of endocarditis presented to the hospital with a chief complaint of left upper extremity pain redness and swelling over the past week to 10 days. Denies any chest pain palpitations lightheadedness dizziness. Denies any fevers chills. Mentioned that he has been using heroin and cocaine. Denies any numbness tingling. Review of all other systems is negative except mentioned above ER course: Per ER team patient initially presented yesterday with similar complaints and patient was given antibiotics and had a venous duplex done which showed no evidence of DVT. Patient left AMA and presented back again today. Patient noted to have drainage around the left arm cellulitis-I&D was done with 200 cc of fluid removal. CT scan of the left upper extremity pending. ER physician also mentioned that less concern for any shoulder or elbow joint infection. Hospital course 24-year-old male with a past medical history of anxiety, depression, polysubstance abuse, IV drug abuse, history of endocarditis presented to the hospital with a chief complaint of left arm pain redness and swelling. Noted to have cellulitis/abscess of the left arm Status post I&D in the ER with 200 cc of pus removed. Started on IV antibiotics. Left arm cellulitis/abscess: Left arm swelling and redness has significantly improved, patient had no fever chills, WBC normalized, 1/2 blood cultures positive for coagulase-negative Staph unlikely pathogen, patient did not require any further I&D , was followed closely by General surgery, patient will need daily dressing changes with dry gauze and Kerlix wrap ,, initially was treated with IV vanc and Zosyn now being discharged home on by mouth Augmentin and doxycycline for 7 days,,Venous duplex negative for DVT. CT scan of left upper extremity showed subcutaneous gas in the soft tissue with trace free fluid in areas of soft tissue heterogeneity.Echocardiogram showed EF 60-65% and moderate to severe tricuspid regurgitation likely due to previous endocarditis, patient has an appointment with Cardiology as outpatient. History of IVDA/opiate dependence: Patient was followed by addiction team and was treated with methadone now being discharged to [facility] strongly recommend to abstain from illicit drug use. Asthma: Stable Time Spent with Patient Time attestation: Total time spent providing and/or coordinating discharge services: Discharge coordination time: Greater than 30 minutes Physical Exam Vital Signs: Vital Signs: Last Vital Signs Temp 97.3 F 03/18/20 03:51 Pulse 72 03/18/20 03:51 Resp 16 03/18/20 03:51 BP 136/68 03/18/20 03:51 Pulse Ox 96 03/18/20 03:51 Body Mass Index 21.2 General resting comfortably no distress. Neck is supple no JVD. CVS regular rate rhythm, systolic murmur Respiratory lungs clear to auscultation, no respiratory distress Gastrointestinal abdomen soft, nontender, bowel sounds audible, no guarding , no rigidity. Extremities left upper extremity significant improvement and redness and swelling, wound healing, no drainage dressing in place. Neuro nonfocal DS: Data Data Completed and Pending Labs on day of discharge: Laboratory Tests 03/14/20 03/14/20 03/14/20 23:32 23:32 23:32 WBC 22.6 H RBC 4.53 L Hgb 12.4 L Hct 37.9 L MCV 83.7 MCH 27.4 MCHC 32.7 RDW 12.8 Plt Count 466 H MPV 10.0 Immature Gran % (Auto) 0.4 Neut % (Auto) 81.3 H Lymph % (Auto) 11.9 L [place] % (Auto) 6.1 Eos % (Auto) 0.1 Baso % (Auto) 0.2 Lymph # (Auto) 2.7 [place] # (Auto) 1.4 H Eos # (Auto) 0.0 Baso # (Auto) 0.1 Abs Immat Gran (auto) 0.10 H Absolute Neuts (auto) 18.4 H Absolute Nucleated RBC 0.000 Nucleated RBC % (auto) 0.0 Sodium 132 L Potassium 4.8 Chloride 92 L Carbon Dioxide 23 Anion Gap 22 H BUN 12 Creatinine 1.01 Estim Creat Clear Calc 117.8 Estimated GFR > 60 Random Glucose 101 Lactic Acid Calcium 9.5 Total Bilirubin 0.5 AST 46 H ALT 28 Alkaline Phosphatase 110 D Total Protein 8.3 H Albumin 4.5 Urine Color Urine Appearance Urine pH Ur Specific [place] Urine Protein Urine Glucose (UA) Urine Ketones Urine Blood Urine Nitrite Ur Leukocyte Esterase Urine RBC Urine WBC Ur Squamous Epith Cells Urine Bacteria Vancomycin Trough Urine Opiates Screen Ur Barbiturates Screen Ur Phencyclidine Scrn Ur Amphetamines Screen U Benzodiazepines Scrn Urine Cocaine Screen U Marijuana (THC) Screen Ethyl Alcohol COVID-19 ([facility]) Negative COVID-19 Clin Com See Note 03/14/20 03/14/20 03/15/20 23:32 23:33 00:19 WBC RBC Hgb Hct MCV MCH MCHC RDW Plt Count MPV Immature Gran % (Auto) Neut % (Auto) Lymph % (Auto) [place] % (Auto) Eos % (Auto) Baso % (Auto) Lymph # (Auto) [place] # (Auto) Eos # (Auto) Baso # (Auto) Abs Immat Gran (auto) Absolute Neuts (auto) Absolute Nucleated RBC Nucleated RBC % (auto) Sodium Potassium Chloride Carbon Dioxide Anion Gap BUN Creatinine Estim Creat Clear Calc Estimated GFR Random Glucose Lactic Acid 1.0 Calcium Total Bilirubin AST ALT Alkaline Phosphatase Total Protein Albumin Urine Color YELLOW Urine Appearance CLEAR Urine pH 6.5 Ur Specific [place] <= 1.005 Urine Protein NEG Urine Glucose (UA) NEG Urine Ketones NEG Urine Blood TRACE Urine Nitrite NEG Ur Leukocyte Esterase NEG Urine RBC 1-4 Urine WBC 0-2 Ur Squamous Epith Cells TRACE Urine Bacteria NONE Vancomycin Trough Urine Opiates Screen Ur Barbiturates Screen Ur Phencyclidine Scrn Ur Amphetamines Screen U Benzodiazepines Scrn Urine Cocaine Screen U Marijuana (THC) Screen Ethyl Alcohol < 10 COVID-19 ([facility]) COVID-19 Clin Com 03/15/20 03/15/20 03/15/20 00:19 06:36 06:36 WBC 15.2 H RBC 3.99 L Hgb 11.1 L Hct 33.6 L MCV 84.2 MCH 27.8 MCHC 33.0 RDW 12.9 Plt Count 385 MPV 9.3 L Immature Gran % (Auto) Neut % (Auto) Lymph % (Auto) [place] % (Auto) Eos % (Auto) Baso % (Auto) Lymph # (Auto) [place] # (Auto) Eos # (Auto) Baso # (Auto) Abs Immat Gran (auto) Absolute Neuts (auto) Absolute Nucleated RBC 0.000 Nucleated RBC % (auto) 0.0 Sodium 138 Potassium 3.8 D Chloride 102 Carbon Dioxide 28 Anion Gap 12 BUN 11 Creatinine 0.75 Estim Creat Clear Calc 158.7 Estimated GFR > 60 Random Glucose 103 Lactic Acid Calcium 7.9 L D Total Bilirubin AST ALT Alkaline Phosphatase Total Protein Albumin Urine Color Urine Appearance Urine pH Ur Specific [place] Urine Protein Urine Glucose (UA) Urine Ketones Urine Blood Urine Nitrite Ur Leukocyte Esterase Urine RBC Urine WBC Ur Squamous Epith Cells Urine Bacteria Vancomycin Trough Urine Opiates Screen POSITIVE H Ur Barbiturates Screen Not Detected Ur Phencyclidine Scrn Not Detected Ur Amphetamines Screen Not Detected U Benzodiazepines Scrn Not Detected Urine Cocaine Screen POSITIVE H U Marijuana (THC) Screen Not Detected Ethyl Alcohol COVID-19 ([facility]) COVID-19 Clin [employer] 03/16/20 03/17/20 03/18/20 11:57 12:23 06:26 WBC 6.7 RBC 4.61 Hgb 12.4 L Hct 39.6 L MCV 85.9 MCH 26.9 L MCHC 31.3 RDW 13.4 Plt Count 513 H D MPV 9.2 L Immature Gran % (Auto) 2.5 H Neut % (Auto) 43.9 L Lymph % (Auto) 32.4 [place] % (Auto) 9.7 Eos % (Auto) 10.6 H Baso % (Auto) 0.9 Lymph # (Auto) 2.2 [place] # (Auto) 0.7 Eos # (Auto) 0.7 H Baso # (Auto) 0.1 Abs Immat Gran (auto) 0.17 H Absolute Neuts (auto) 2.9 Absolute Nucleated RBC 0.000 Nucleated RBC % (auto) 0.0 Sodium Potassium Chloride Carbon Dioxide Anion Gap BUN Creatinine Estim Creat Clear Calc Estimated GFR Random Glucose Lactic Acid Calcium Total Bilirubin AST ALT Alkaline Phosphatase Total Protein Albumin Urine Color Urine Appearance Urine pH Ur Specific [place] Urine Protein Urine Glucose (UA) Urine Ketones Urine Blood Urine Nitrite Ur Leukocyte Esterase Urine RBC Urine WBC Ur Squamous Epith Cells Urine Bacteria Vancomycin Trough 3.6 L 10.3 Urine Opiates Screen Ur Barbiturates Screen Ur Phencyclidine Scrn Ur Amphetamines Screen U Benzodiazepines Scrn Urine Cocaine Screen U Marijuana (THC) Screen Ethyl Alcohol COVID-19 ([facility]) COVID-19 [employer] Com 03/18/20 03/18/20 06:26 12:20 WBC RBC Hgb Hct MCV MCH MCHC RDW Plt Count MPV Immature Gran % (Auto) Neut % (Auto) Lymph % (Auto) [place] % (Auto) Eos % (Auto) Baso % (Auto) Lymph # (Auto) [place] # (Auto) Eos # (Auto) Baso # (Auto) Abs Immat Gran (auto) Absolute Neuts (auto) Absolute Nucleated RBC Nucleated RBC % (auto) Sodium 141 Potassium 4.5 Chloride 108 Carbon Dioxide 21 L Anion Gap 17 BUN 10 Creatinine 0.75 Estim Creat Clear Calc 158.7 Estimated GFR > 60 Random Glucose 91 Lactic Acid Calcium 8.9 D Total Bilirubin AST ALT Alkaline Phosphatase Total Protein Albumin Urine Color Urine Appearance Urine pH Ur Specific [place] Urine Protein Urine Glucose (UA) Urine Ketones Urine Blood Urine Nitrite Ur Leukocyte Esterase Urine RBC Urine WBC Ur Squamous Epith Cells Urine Bacteria Vancomycin Trough < 3.0 L Urine Opiates Screen Ur Barbiturates Screen Ur Phencyclidine Scrn Ur Amphetamines Screen U Benzodiazepines Scrn Urine Cocaine Screen U Marijuana (THC) Screen Ethyl Alcohol COVID-19 ([facility]) COVID-19 Clin Com Preliminary micro results at discharge 03/14/20 23:32 Blood Culture - Preliminary Blood - Venous No growth after 48 hours. Discharge Plan Discharge Patient Disposition: Xfer Other Referrals: [facility] -detox [Other] Physician,None [Primary Care Provider] - Discharge Medications: New doxycycline hyclate 100 mg capsule 100 mg PO DAILY Qty: 14 RF: 0 amoxicillin-pot clavulanate [Augmentin] 875-125 mg tablet 1 tab PO BID Qty: 14 RF: 0 Discharge Orders: Discharge Order (Routine); Ordered 03/18/20 Ordered By: Giselle Wang Diet: advance to usual diet Activity on Discharge: As tolerated Stand Alone Forms: Patient Portal Discharge page Care Plan Goals: Being discharged to [facility] Health Concerns: Illicit drug use/left arm abscess and cellulitis Plan of Treatment: Outpatient follow-up with primary care physician and Cardiology
[2020-03-18 15:44] VITALS: BP 120/52; PULSE 60; RESP 14; TEMP 36.5; O2SAT 99
== END 2020-03-18 17:10 | disposition other institution (70) | DRG 383 ==
LOC: HO.ED 03-15 00:27 → HO.EDOVER 03-15 00:44 → HO.S3 03-15 19:04
PROVIDERS: Admitting Provider Hospitalist; Emergency Provider Student in an Organized Health Care Education/Training Program; Visit Provider Hospitalist
DX: L03.114 Cellulitis of left upper limb (principal); F11.20 Opioid dependence, uncomplicated; F41.9 Anxiety disorder, unspecified; L02.414 Cutaneous abscess of left upper limb; Z20.822 Contact with and (suspected) exposure to COVID-19
CPT/HCPCS: 36415; 71045; 73201; 80048; 80053; 80202; 80307; 80320; 81001; 83605; 85025; 85027; 87040; 87147; 87205; 87635; 93005; 93306; 96365; 96367; 96375; 96376; 99218; 99282; 99285; J1170; J1885; J2543; J3370; Q9967

== ENCOUNTER 2020-06-28 18:27 | Emergency (ER) | payer MEDICAID, SELFPAY ==
--- NOTE | ~2020-06-28 | US_ITS ---
EXAMINATION: US ABDOMEN LIMITED CLINICAL INFORMATION: Elevated liver function tests. COMPARISON: None TECHNIQUE: Real-time imaging of the right upper quadrant abdominal viscera. FINDINGS: PANCREAS: The head and body the pancreas are normal. The tail is not well visualized due to bowel gas. LIVER: Normal. The liver is normal in size. The liver contour is normal. Parenchymal echogenicity is normal. No focal hepatic lesion. There is no intrahepatic biliary duct dilatation seen. GALLBLADDER: The gallbladder is contracted as the patient has recently and difficult to evaluate. No gallstones are appreciated. COMMON BILE DUCT: Normal in caliber measuring 0.4 cm in diameter. RIGHT KIDNEY: Normal. No hydronephrosis. No renal calculi or focal parenchymal lesions. The kidney measures 12.7 cm in maximum dimension. FREE FLUID: None. US/US abdomen limited IMPRESSION: Normal-appearing liver. Contracted gallbladder. Limited visualization of the tail of the pancreas.
[2020-06-28 18:33] VITALS: BMI 26.4
[2020-06-28] MEDS: Haloperidol Lactate 5 MG/ML VIAL IM (18:46)
[2020-06-28] MEDS: LORazepam 2 MG/ML VIAL IM (18:46)
[2020-06-28 18:50] VITALS: PULSE 123; O2SAT 94
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
[2020-06-28 19:28] LABS: MANUAL DIFF FLAG NO
[2020-06-28 19:35] LABS: Basophils Percent Auto 0.3 % (0-2); Eosinophils Absolute Auto 0.2 X10*3/uL (0.0-0.4); Eosinophils Percent Auto 2.1 % (0-4); Hematocrit 36.8 % (42-52); Hemoglobin 12.6 g/dl (14.0-18.0); Imm Gran Abs Auto 0.08 X10*3/uL (0.00-0.03); Imm Gran Pct Auto 0.7 % (0.0-0.4); Lymphocytes Absolute Auto 2.8 X10*3/uL (1.2-4.9); Lymphocytes Percent Auto 24.6 % (20-40); Mean Corpuscular HGB Conc 34.2 g/dl (31.0-36.0); Mean Corpuscular Hemoglobin 29.4 pg (27.0-33.0); Mean Corpuscular Volume 85.8 fL (80-98); Mean Platelet Volume 9.6 fL (9.4-12.4); Monocytes Percent Auto 8.7 % (2-11); Neutrophils Absolute Auto 7.3 X10*3/uL (2.0-8.3); Neutrophils Percent Auto 63.6 % (45-73); Platelet Count 267 X10*3/uL (160-400); Red Blood Count 4.29 X10*6/uL (4.60-5.80); Red Cell Distribution Width 13.8 % (11.0-16.0); White Blood Count 11.4 X10*3/uL (4.8-10.8)
[2020-06-28 19:59] LABS: Ethanol < 10 mg/dL
[2020-06-28 20:02] LABS: Salicylate < 5.0 mg/dL (15-30)
[2020-06-28 20:12] LABS: Acetaminophen LAB < 1 mcg/mL (<30)
[2020-06-28 20:15] LABS: Amphetamine Screen Urine Not Detected (Not Detect); Barbiturates, Urine Not Detected (Not Detect); Benzodiazepines Screen Urine Not Detected (Not Detect); Cannabinoid Screen Urine POSITIVE (Not Detect); Cocaine Screen Urine POSITIVE (Not Detect); Opiate Screen Urine POSITIVE (Not Detect); Phencyclidine Screen Urine Not Detected (Not Detect)
[2020-06-28 21:04] VITALS: BP 110/62; PULSE 94; RESP 18; TEMP 36.7; O2SAT 99
[2020-06-29 02:00] VITALS: BP 108/61; PULSE 77; RESP 11
[2020-06-29 04:00] VITALS: BP 116/65; PULSE 73; RESP 10
--- NOTE | 2020-06-29 07:31 | PC.NURSE ---
Report received. PT ambulated to pod with steady gait, PT to see BHN, denies complaints at this time.
[2020-06-29 09:50] VITALS: BP 124/72; PULSE 75; RESP 16; TEMP 37.4; O2SAT 98
[2020-06-29 09:52] LABS: COVID-19 Test Negative (Negative); IDNOW Serial# 08D9AD1C
[2020-06-29 10:16] LABS: Alanine Aminotransferase 191 U/L (0-40); Albumin Level 3.9 g/dL (3.5-5.0); Alkaline Phosphatase 111 U/L (39-117); Anion Gap 17 (12-20); Aspartate Amino Transferase 295 U/L (5-37); Bilirubin Total 0.8 mg/dL (0.0-1.0); Blood Urea Nitrogen 10 mg/dL (9-16); Calcium 9.3 mg/dL (8.4-10.2); Carbon Dioxide 22 mmol/L (22-29); Chloride 105 mmol/L (96-108); Estimated Glomerular Filt Rate > 60; Glucose Random 67 mg/dL (60-115); Magnesium 2.4 mg/dL (1.6-2.6); Potassium 3.7 mmol/L (3.3-5.1); Sodium 140 mmol/L (135-145); Total Protein 6.6 g/dL (6.5-8.0)
[2020-06-29] MEDS: LORazepam 1 MG TABLET PO (18:04)
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
--- NOTE | 2020-06-29 18:21 | MHC.RECOVSUP ---
? Reason for consult Overdose o Current location: [facility] o Identified substance use concern: Heroin&Cocain - Overdose - Withdrawal - Seeking ATS (detox) - Support ? Intervention: o ATS bed search started 6PM/completed 6:30pm o Community resources provided o Harm reduction discussion ? Plan: o Bed search in progress to [facility] o Follow up tomorrow o Patient to follow up with [facility] after discharge ? Additional information: Patient is on waiting list for [facility].. The plan is to have [facility] pick patient up in the Morning and transport patient to [facility] in the morning
[2020-06-30 05:44] VITALS: BP 124/60; PULSE 92; RESP 20; TEMP 37.6; O2SAT 97
--- NOTE | 2020-06-30 06:53 | PC.NURSE ---
patient appears to remain asleep at present with even unlabored breaths appears in no distress
--- NOTE | 2020-06-30 09:35 | MHC.RECOVSUP ---
Recovery Support note: Patient is a 24 year old Finnish speaking male who [place] [facility] [place] to [place] use. Patient was seen by the CARE Team who recommended that patient go to detox. This writer technical publications met with patient to discuss the plan for detox. Patient reports he is interested in detox and agreeable to going to [facility] as a walk in. Explained to patient that a bed may not be available and he may have to wait until a bed opens up. Patient acknowledged. Patient reports he is already on the waitlist. This writer technical publications called up [facility] and they did not have patient on the waiting list. This writer technical publications put patient on the phone with member services coordinator so that patient can go on the waitlist. This writer technical publications asked if patient would be interested in Suboxone prior to discharge and patient declined. Patient discharged to [facility] waiting room via Lyft.
== END 2020-06-30 09:30 | disposition home or self-care (01) ==
PROVIDERS: Nurse Practitioner Family; Physician Assistant Medical; Emergency Provider Emergency Medicine Emergency Medical Services
DX: F14.159 Cocaine abuse with cocaine-induced psychotic disorder, unspecified (principal); F11.159 Opioid abuse with opioid-induced psychotic disorder, unspecified; Z20.822 Contact with and (suspected) exposure to COVID-19; F17.210 Nicotine dependence, cigarettes, uncomplicated
CPT/HCPCS: 36415; 51701; 76705; 80053; 80143; 80179; 80307; 80320; 83735; 85025; 87635; 96372; 96374; 96375; 99285; 99291; J2060

== ENCOUNTER 2020-07-08 11:32 | Emergency (ER) | payer MEDICAID, SELFPAY ==
[2020-07-08 11:37] VITALS: BP 145/90; PULSE 120; O2SAT 96
--- NOTE | 2020-07-08 12:00 | ED.ALCOHOL ---
HPI - Alcohol General Chief Complaint: ETOH/Substance Use Stated Complaint: drug use Time Seen by Provider: 07/08/20 12:00 Source: patient and EMS Mode of arrival: EMS Limitations: other (intoxication) History of Present Illness HPI narrative: using heroin and cocaine found trespassing no SI/HI, just kicked out of detox MD complaint: desires rehab Chronic alcohol use: No Previous visits for alcohol intoxication: No Recent trauma: No Associated symptoms: other (anxiety) Treatments prior to arrival: none Related Data Previous Rx's Medication Instructions Recorded amoxicillin-pot clavulanate 1 tab PO BID #14 tab 03/18/20 [Augmentin] doxycycline hyclate 100 mg PO DAILY #14 cap 03/18/20 Allergies Allergy/AdvReac Type Severity Reaction Status Date / Time No Known Allergies Allergy Verified 03/15/20 04:57 [No Known Allergies*] Review of Systems Review of Systems: Constitutional : No Fever, No Chills ENT/Mouth : No Ear Pain, No Nasal Congestion, No sore throat Eyes: No Eye Pain, No Swelling, No Redness Cardiovascular : No Chest Pain, No SOB Respiratory : No Cough, No Sputum, No Dyspnea Gastrointestinal : No Nausea, No Vomiting, No Diarrhea, No Hematochezia, No Melena Genitourinary : No Dysuria, No Urinary Frequency, No Hematuria Musculoskeletal : No Myalgias Skin : No Skin Lesions, No rash Neuro : No Weakness, No Numbness, No Paresthesias, No Dizziness, No Headache Psych : positive Anxiety, positive Depression, no SI/HI Heme/Lymph: No Lymphadenopathy Endocrine : No Polyuria, No Polydipsia All other systems reviewed and are negative [facility] Past Medical History Attestation statement: The following information was validated with the patient. Medical History ADHD Anxiety Asthma GERD (gastroesophageal reflux disease) Insomnia Substance abuse Social History Social History Household Members: None Housing: Apartment Do you presently have visiting nurse or other home services: No Alcohol intake: unknown Second Hand Smoke Exposure: No Substance Use Type: Crack/Cocaine, Heroin and Marijuana Substance Use Frequency: Chronic Longstanding Last Used Substance: Just Prior to Admission Advance Directives: Yes Advance Directives on File: Yes Advance Directives Date on File: 03/15/20 service: No Current occupational status: other Physical Exam Vital Signs: Vital Signs: Last Vital Signs Resp 18 07/08/20 16:18 Body Mass Index 23.6 Appearance: Alert. Oriented X3. No acute distress. Anxious agitated hyperverbal Eyes: Pupils equal, round and reactive to light. ENT: Pharynx normal. Neck: Normal inspection. Neck supple. CVS: tachycardic heart rate and rhythm. Pulses normal. Respiratory: No respiratory distress. Breath sounds normal. Abdomen: Soft and nontender. Skin: Skin warm and dry. Normal skin color. Normal skin turgor. Extremities: No lower extremity edema. No calf ttp Neuro: Oriented X 3. No motor deficit. No sensory deficit. Psych: no SI/HI, anxious agitated hyperverbal Course Course Course Narrative: more calm at this time, responded well to ativan Patient placed in physician observation at 437pm. The indication for observation is that the patient needs more time to see if his substance abuse improves and he can be assisted to detox by recovery coaches . At this time the patient is well developed well nourished, lungs clear, CV RRR, abd nontender, neuro is intact. signed out to Dr. Clifford [facility] [place] - Alcohol [facility] [place] Narrative Medical decision making narrative: 24 yo male using cocaine and heroin, no SI, found trespassing brought in by PD for drug use, no narcan given, here agitated, will talk to recovery coaches, given ativan, no trauma, no SI, does not need crisis consult, states he was just kicked out of detox Discharge Plan Discharge Clinical Impression: Polysubstance abuse Instructions: Polysubstance Abuse (ED) Additional Instructions: return to ED for any worsening symptoms or concerns Prescriptions: No Action doxycycline hyclate 100 mg capsule 100 mg PO DAILY Qty: 14 RF: 0 amoxicillin-pot clavulanate [Augmentin] 875-125 mg tablet 1 tab PO BID Qty: 14 RF: 0
[2020-07-08 12:01] VITALS: BMI 23.6
--- NOTE | 2020-07-08 12:19 | PC.NURSE ---
PT REMAINS AGITATED, LOUD. IS WILLING TO TALK TO SINGLE WIRE SAW OPERATOR
[2020-07-08] MEDS: LORazepam 1 MG TABLET 2 MG PO (12:27)
--- NOTE | 2020-07-08 12:43 | PC.NURSE ---
SENIOR SOFTWARE SYSTEMS ENGINEER ATTEMPTED TO SPEAK WITH PT. PT UNCOPERATIVE, FIXATED ON BREATHING DIFFICULTY. NO DIFFICULTY NOTED, SPEAKING NON-STOP.
--- NOTE | 2020-07-08 13:01 | MHC.RECOVSUP ---
Recovery Support note: Patient is a 24 year old Israeli speaking male who presented to [facility] via EMS after being found trespassing in the community under the influence of substances. Patient is known to this leader writer from a previous consultation last week when patient was sent to a detox facility. Patient was initially uncooperative with care upon arrival to [facility]. This leader writer attempted to meet with patient to discuss his substance use and treatment options. Patient denies use at this time, states he is out of it because he is having an asthma attack and can't breathe. Encouraged patient to take deep breaths, however he was not receptive to this advice. Discussed case with patient's RN and ED provider. This leader writer will revisit patient after he has time to eat his lunch.
--- NOTE | 2020-07-08 13:37 | PC.NURSE ---
PT SLEEPING IN COMMON AREA
--- NOTE | 2020-07-08 15:17 | PC.NURSE ---
BACK TO ROOM, SLEEPING. REFUSING VS STILL
--- NOTE | 2020-07-08 15:47 | PC.NURSE ---
Report received. PT currently sleeping, respirations even and unlabored, in on apparent distress.
[2020-07-08 16:18] VITALS: RESP 18
--- NOTE | 2020-07-08 16:18 | PC.NURSE ---
PT awake, yelling in his room, declined vital signs, in no apparent distress.
== END 2020-07-08 18:43 ==
PROVIDERS: Emergency Provider Emergency Medicine
DX: F14.10 Cocaine abuse, uncomplicated (principal); F11.10 Opioid abuse, uncomplicated; F41.8 Other specified anxiety disorders; R45.1 Restlessness and agitation
CPT/HCPCS: 99284

== ENCOUNTER 2022-03-27 18:47 | Emergency (ER) | payer MEDICAID, SELFPAY ==
--- NOTE | ~2022-03-27 | XR_ITS ---
EXAMINATION: XR FOOT, LEFT CLINICAL INFORMATION: Patient stepped on glass. Pain. COMPARISON: None TECHNIQUE: AP, lateral, and oblique views of the left foot. FINDINGS: The bones and soft tissues are normal. No fracture. Alignment is anatomic. Joint spaces are maintained. No radiopaque foreign body seen. XR/XR foot LT 2V IMPRESSION: Normal left foot.
[2022-03-27 19:10] VITALS: BP 137/78; PULSE 85; RESP 18; TEMP 37.1; O2SAT 98; BMI 29.5
[2022-03-27 19:15] VITALS: BP 137/78; PULSE 85; RESP 18; TEMP 37.1; O2SAT 98
--- NOTE | 2022-03-27 19:28 | ED_ITS ---
HPI - Extremity Problem General Chief complaint: Extremity Injury, Upper Stated complaint: L PINKY TOE ABRASION,IN POLICE CUSTODY PER EMS Time Seen by Provider: 03/27/22 18:49 Source: patient, EMS and police Mode of arrival: EMS Limitations: other (Poor historian) History of Present Illness HPI Narrative: This is a 26-year-old male history of opiate use disorder, IV drug abuse presenting status post stepping on glass in an alley, patient states he noticed his foot was bleeding and he wanted to get medical evaluation. He says he was picking the glass out. He is under arrest and police at the bedside. Patient denies numbness, tingling, fevers, chills, chest pain, shortness of breath, nausea, vomiting, headache, vision changes in dizziness. Unclear story, poor historian. Related Data Previous Rx's Medication Instructions Recorded amoxicillin 875 mg-potassium 1 tab PO BID #14 tabs 03/18/20 clavulanate 125 mg tablet (Augmentin) doxycycline hyclate 100 mg capsule 100 mg PO DAILY #14 caps 03/18/20 cephalexin 500 mg tablet 500 mg PO Q6H 10 days #40 tabs 03/27/22 doxycycline hyclate 100 mg capsule 100 mg PO BID 10 days #20 caps 03/27/22 Allergies Allergy/AdvReac Type Severity Reaction Status Date / Time No Known Allergies Allergy Verified 03/15/20 04:57 [No Known Allergies*] Review of Systems Review of Systems: Constitutional : No Fever, No Chills, Cardiovascular : No Chest Pain, No SOB Respiratory : No Dyspnea Gastrointestinal : No abdominal pain Musculoskeletal : No Joint Swelling Skin : No rash, positive skin laceration Neuro : No Weakness, No Numbness Psych : No SI/HI Yes all other systems are reviewed and are negative [facility] Past Medical History Attestation statement: The following information was validated with the patient. Source: old records reviewed and nursing notes reviewed Medical History ADHD Anxiety Asthma GERD (gastroesophageal reflux disease) Insomnia Substance abuse Social History Social History Household Members: None Housing: Apartment Do you presently have visiting nurse or other home services: No Alcohol intake: current Alcohol intake frequency: holidays/special occasions only Smoked in Last 30 Days: Yes Second Hand Smoke Exposure: No Use of substances other than those prescribed or required for medical reasons: Yes Substance Use Type: Crack/Cocaine Advance Directives: Yes Advance Directives on File: Yes Advance Directives Date on File: 03/15/20 service: No Current occupational status: other Physical Exam Vital Signs: Vital Signs: Last Vital Signs Temp 98.7 F 03/27/22 19:15 Pulse 85 03/27/22 19:15 Resp 18 03/27/22 19:15 BP 137/78 03/27/22 19:15 Pulse Ox 98 03/27/22 19:15 O2 Del Method 03/27/22 19:15 BMI result Body Mass Index 29.5 vss Appearance: Alert.? Oriented X3.? No acute distress.? Head: Normocephalic, atraumatic, no step-offs or deformities Eyes: Pupils equal, round and reactive to light.? CVS: Normal heart rate and rhythm.? Pulses normal.? Respiratory: No respiratory distress.? Breath sounds normal.? Abdomen: Soft and nontender.? Skin: Skin warm and dry.? Normal skin color.? Normal skin turgor.?+ multiple abrasions noted to the plantar aspect of foot, particularly around the 5hth toe, unable to visualize any foreign bodies or glass, her cuss the area and was unable to feel any glass. 2+ dorsalis pedis, anterior tibialis, posterior tibialis pulses equal bilateral. No footdrop. Normal sensation to lower extremities. Extremities: No lower extremity edema.? No calf ttp. 5/5 strength to bilateral upper and lower extremities Neuro: Oriented X 3.? No motor deficit.? No sensory deficit. CN 2-12 intact Course Reevaluation(s) Reevaluation #1: Area cleaned. Unremarkable x-ray of left foot. No signs of foreign body. No fractures or dislocations. Patient given tetanus shot. At this time patient will be discharged back to police custody. Educated patient on diagnosis and treatment plan, answered all question, patient verbalizes understanding. At this time patient will be discharged home, advised to return with new or worsening symptoms. Educated on worrisome signs and symptoms and when to return. At this time I feel comfortable discharge home. Time: 19:59 Medications Administered Discontinued Medications Generic Name Dose Route Start Last Admin Trade Name Freq PRN Reason Stop Dose Admin Diphtheria/Tetanus/Acell Pertussis 0.5 ml 03/27/22 19:25 03/27/22 19:39 Diphth,Pertus(Acell),Tet Adult 0.5 Ml Syringe IM 03/27/22 19:26 0.5 ml .ONCE ONE Administration Nicotine 14 mg 03/27/22 19:39 03/27/22 19:44 Nicotine 14 Mg Patch.Td24 TRANSDERMA 03/27/22 19:40 14 mg ONCE ONE Administration Medical Decision Making Medical Decision Making [facility] Narrative: 193 26-year-old male with an unclear history presents with abrasions to bottom of foot he states he stepped on glass. multiple abrasions noted to the plantar aspect of foot, particularly around the 5hth toe, unable to visualize any foreign bodies or glass, her cuss the area and was unable to feel any glass. 2+ dorsalis pedis, anterior tibialis, posterior tibialis pulses equal bilateral. No footdrop. Normal sensation to lower extremities. Likely abrasions secondary to being barefoot, unlikely fracture, dislocations. I do not visualize any foreign bodies however there was concerns for possible retained foreign bodies. Explained this to patient, he verbalizes understanding will give him follow-up with General surgery. No signs of neurovascular compromise or threatened limb. Plan imaging. Differential Diagnosis Differential Diagnoses: The differential diagnosis associated with the presentation includes Likely abrasions secondary to being barefoot, unlikely fracture, dislocations. I do not visualize any foreign bodies however there was concerns for possible retained foreign bodies. Explained this to patient, he verbalizes understanding will give him follow-up with General surgery. No signs of neurovascular compr omise or threatened limb. Independent Interpretation I performed an independent interpretation of an: Plain X-Ray (Unremarkable) Radiology Impression Discussion of test interpretation with radiology: I have reviewed the radiologist's reading. Core Measures AMI core measures followed: Yes Measure exclusions: not indicated Critical Care Time Critical Care Time Critical Care Time: No Discharge Plan Discharge Clinical Impression: Abrasion foot/toe, Retained foreign body Patient Disposition: Home, Self-Care Instructions: Abrasion (ED) Additional Instructions: Take your medications as prescribed. If you were prescribed antibiotics today, it is important that you take your medication to their entirety, do not skip any doses, do not finish them early. Follow-up with your primary care provider this week. Return to the emergency department with new or worsening symptoms. Such as fevers, chills, chest pain, shortness of breath, nausea, vomiting, dizziness, headache, vision changes, lethargy In case of emergency call 911 There is a chance that you have retained foreign bodies in your foot, I was unable to see any on my exam. Please soak your foot in warm water with Epsom salt, you can follow-up with General surgery if they are bothering him. A script for antibiotics has been printed and given to you. You received your tetanus shot. Prescriptions: New doxycycline hyclate 100 mg capsule 100 mg PO BID 10 Days Qty: 20 0RF cephalexin 500 mg tablet 500 mg PO Q6H 10 Days Qty: 40 0RF No Action doxycycline hyclate 100 mg capsule 100 mg PO DAILY Qty: 14 0RF amoxicillin-pot clavulanate [Augmentin] 875-125 mg tablet 1 tab PO BID Qty: 14 0RF Referrals: [facility] [Provider Group] - 2 weeks ED Physician,Generic [Physician] - 2 days Stand Alone Forms: Work/School Release
[2022-03-27] MEDS: Diphth,Pertus(ACell),Tet Adult 0.5 ML SYRINGE IM (19:39)
[2022-03-27] MEDS: Nicotine 14 MG PATCH.TD24 TRANSDERMA (19:44)
== END 2022-03-27 20:17 | disposition home or self-care (01) ==
PROVIDERS: Emergency Provider Student in an Organized Health Care Education/Training Program
DX: S90.812A Abrasion, left foot, initial encounter (principal); F14.90 Cocaine use, unspecified, uncomplicated; M79.672 Pain in left foot; Y28.9XXA Contact with unspecified sharp object, undetermined intent, initial encounter; Y93.9 Activity, unspecified; Y92.9 Unspecified place or not applicable; Y99.9 Unspecified external cause status; Z79.899 Other long term (current) drug therapy; Z23 Encounter for immunization
CPT/HCPCS: 73620; 90471; 90715; 99284